=== PATIENT | male | born 1960 | race Caucasian/White ===

== ENCOUNTER 2017-01-05 11:51 | Inpatient (IN) | payer BC ==
[~2017-01-05] VITALS: Ht 177.8 cm; Wt 97.5 kg
[2017-01-05] VITALS (9 sets, daily range): BP systolic 113–141; BP diastolic 63–86
[2017-01-05] MEDS: LIDOCAINE 1% / SOD BICARB 8.4% 20 ML VIAL. IJ ONE ×2 (12:00→12:22)
[2017-01-05] MEDS: fentaNYL PF VIAL 100 MCG/2 ML VIAL IV PRN ×6 (12:22→19:36)
--- NOTE | 2017-01-05 12:32 | RAD ---
Indication injury, pain. AP and lateral views of the left tibia and fibula were obtained. There is a spiral, slightly comminuted traumatic fracture involving the distal tibial diaphysis. There is mild displacement of fracture fragments. There is a dense material at the fracture site, within the bone, compatible with impacted foreign body at the fracture site. A minute foreign body is noted in the soft tissues of the upper calf opposite the proximal fibular diaphysis. IMPRESSION: Comminuted fracture of the distal tibial diaphysis. A foreign body is noted within the bone at the fracture site.
[2017-01-05 12:43] LABS: BASO % 0 % (0-3); EOS % 1 % (0-3); HEMATOCRIT 43.4 % (39.0-53.0); HEMOGLOBIN 14.5 g/dL (13.0-17.5); LYMPH # 1.1 x10^3/uL (1.0-4.8); LYMPH % 10 % (24-48); MEAN CORPUSCULAR HEMOGLOBIN 29 pg (25-35); MEAN CORPUSCULAR HGB CONC 34 g/dL (31-37); MEAN CORPUSCULAR VOLUME 87 fL (79-100); MONO % 5 % (0-9); NEUT % 84 % (31-73); PLATELET COUNT 193 x10^3/uL (140-400); RED BLOOD COUNT 4.97 x10^6/uL (4.30-5.70); RED CELL DISTRIBUTION WIDTH 13.3 % (11.5-14.5); WHITE BLOOD COUNT 11.3 x10^3/uL (4.0-11.0)
[2017-01-05 12:54] LABS: CALCIUM 8.7 mg/dL (8.5-10.1); CREATININE 1.1 mg/dL (0.7-1.3); GFR 69.2
[2017-01-05] MEDS ORDERED: DEXTROSE 50% 25 GM / 50ML DISP.SYRIN. IV PRN ×3 (14:00→19:00)
[2017-01-05] MEDS ORDERED: ACETAMINOPHEN 325 MG TABLET. PO PRN ×2 (14:00→15:00)
[2017-01-05] MEDS ORDERED: ONDANSETRON PF 4 MG/2 ML VIAL. IV PRN ×4 (14:00→19:00)
[2017-01-05] MEDS ORDERED: MORPHINE SULFATE 4 MG/ML DISP.SYRIN. IV PRN ×2 (14:00→19:00)
[2017-01-05] MEDS ORDERED: IV RINGERS,LACTATED 1000ML 1,000 ML IV SCH (14:07)
[2017-01-05] MEDS ORDERED: LIDOCAINE 1% 1 ML SYRINGE. ID PRN (14:15)
[2017-01-05] MEDS ORDERED: HYDROmorphone 2 MG/ML VIAL IV PRN (14:15)
[2017-01-05] MEDS ORDERED: fentaNYL PF VIAL 100 MCG/2 ML VIAL IV PRN ×2 (14:15→19:00)
[2017-01-05] MEDS ORDERED: PROCHLORPERAZINE 10 MG/2 ML VIAL. IV PRN (14:15)
[2017-01-05] MEDS ORDERED: MORPHINE SULFATE 2 MG/ML DISP.SYRIN. IV PRN ×2 (14:15→19:00)
--- NOTE | 2017-01-05 14:29 | EKG ---
[facility] [address] [place] [address] Test Date: 2017-01-05 Test Time: 13:52:11 Pat Name: DANDRE MEHTA Department: Room: 418 1 Gender: M [employer]uum [employer] T[employer]: : 1960 Requested By: MUSTAPHA SHAW Order Number: [id number] Reading MD: Jacque Ayala Measurements Intervals [place] Rate: 81 P: 25 DC: 152 QRS: 20 QRSD: 94 T: 0 QT: 358 QTc: 416 Interpretive Statements SINUS RHYTHM QRS(T) CONTOUR ABNORMALITY CANNOT RULE OUT ANTEROSEPTAL MYOCARDIAL DAMAGE RI6.01 Unconfirmed report No previous ECG available for comparison Electronically Signed On 01-10-2017 14:11:52 CDT by Jacque Ayala
--- NOTE | 2017-01-05 14:36 | RAD ---
Portable chest, 01/05/2017: History: Preop evaluation, leg fracture The heart size and pulmonary vascularity are normal. No pulmonary infiltrates are seen. There is no evidence of pleural fluid. IMPRESSION: No acute cardiopulmonary abnormality is detected.
--- NOTE | 2017-01-05 14:39 | PDOC2 ---
ADELINA YOO REDYE HAND 01/05/17 1439: CONSULT Date of Consult Date of Consult DATE: 01/05/17 TIME: 14:35 Reason for Consult Reason for Consult: trauma Referring Physician Referring Physician: ER Identification/Chief Complaint Chief Complaint trauma injury Source Source: Chart review, Patient History of Present Illness Reason for Visit: Working with a tool that has a significant high speed, he was hit in abdomen, lost breathe momentarily, then noticed fractured left leg. Past Medical History Cardiovascular: HTN Endocrine: Diabetes Past Surgical History Past Surgical History: No pertinent history Family History Family History: Other (noncontributory to current illness ) Social History No ALCOHOL: occassional Drugs: None Lives: with Family Current Medications Current Medications Current Medications Fentanyl Citrate (Fentanyl 2ml Vial) 50 mcg PRN Q15MIN PRN IV PAIN GREATER THAN 3/10 Last administered on 01/05/17 14:15; Start 01/05/17 at 12:00; Stop at 11:59 Lidocaine/Sodium Bicarbonate (Buffered Lidocaine 1%) 20 ml 1X ONCE IJ ; Start 01/05/17 at 12:00; Stop 01/05/17 at 12:07; Status DC Cefazolin Sodium/ Dextrose 50 ml @ 100 mls/hr 1X ONCE IV Last administered on 01/05/17 13:14; Start 01/05/17 at 13:00; Stop 01/05/17 at 13:29; Status DC Ondansetron HCl (Zofran) 4 mg PRN Q8HRS PRN IV NAUSEA/VOMITING; Start 01/05/17 at 14:00; Stop 01/06/17 at 13:59 Morphine Sulfate 4 mg PRN Q2HR PRN IV PAIN; Start 01/05/17 at 14:00; Stop 01/06 at 13:59 Acetaminophen (Tylenol) 650 mg PRN Q4HRS PRN PO FEVER; Start 01/05/17 at 14:00 ; Stop 01/06/17 at 13:59 Insulin Aspart (NovoLOG) 0-5 UNITS TIDWMEALS SQ ; Start 01/05/17 at 17:00 Dextrose (Dextrose 50%-Water Syringe) 12.5 gm PRN Q15MIN PRN IV SEE COMMENTS; Start 01/05/17 at 14:00 Ondansetron HCl (Zofran) 4 mg PRN Q6HRS PRN IV NAUSEA/VOMITING; Start 01/05/17 at 14:15; Stop 01/06/17 at 14:14 Fentanyl Citrate (Fentanyl 2ml Vial) 25 mcg PRN Q5MIN PRN IV MILD PAIN; Start 01/05/17 at 14:15; Stop 01/06/17 at 14:14 Fentanyl Citrate (Fentanyl 2ml Vial) 50 mcg PRN Q5MIN PRN IV MODERATE PAIN; Start 01/05/17 at 14:15; Stop 01/06/17 at 14:14 Morphine Sulfate 1 mg PRN Q10MIN PRN IV SEVERE PAIN; Start 01/05/17 at 14:15; Stop 01/06/17 at 14:14 Ringer's Solution 1,000 ml @ 0 mls/hr Q0M IV ; Start 01/05/17 at 14:07; Stop at 02:06 Lidocaine HCl 2 ml PRN 1X PRN ID PRIOR TO IV START; Start 01/05/17 at 14:15; Stop 01/06/17 at 14:14 Hydromorphone HCl (Dilaudid) 0.5 mg PRN Q10MIN PRN IV SEV PAIN, Second choice; Start 01/05/17 at 14:15; Stop 01/06/17 at 14:14 Prochlorperazine Edisylate (Compazine) 5 mg PACU PRN PRN IV NAUSEA, MRX1; Start 01/05/17 at 14:15; Stop 01/06/17 at 14:14 Allergies Allergies: Coded Allergies: No Known Drug Allergies (Unverified , 10/24/15) ROS General: No: Chills, Other (fevers) PSYCHOLOGICAL ROS: No: Anxiety, Depression Eyes: No Blurry vision, No Double vision HEENT: No: Heacaches, Sore Throat Hematological and Lymphatic: No: Bleeding Problems, Blood Clots Respiratory: No: Cough, Shortness of breath Cardiovascular: No Chest Pain, No Palpitations Gastrointestinal: No Nausea, No Vomiting Genitourinary: No Dysuria, No Hematuria Musculoskeletal: Yes Joint Pain Neurological: No Headaches, No Numbness/Tingling Skin: No Pruritus, No Rash Physical Exam General: Alert, Oriented X3, Cooperative, No acute distress HEENT: PERRLA, Mucous membr. moist/pink Lungs: Clear to auscultation, Normal air movement Heart: Regular rate, Normal S1, Normal S2, No murmurs Abdomen: Soft, Other (bruising to RLQ, nontender, ND) Extremities: Other (left leg in splint) Skin: No rashes Neuro: Normal speech, Sensation intact Psych/Mental Status: Mental status NL, Mood NL MUSCULOSKELETAL: No deformity, No swelling Vitals VITALS Vital Signs Date Time Temp Pulse Resp B/P (MAP) Pulse Ox O2 Delivery O2 Flow Rate FiO2 01/05/17 14:15 17 97 Room Air 01/05/17 14:00 72 123/70 (87) 01/05/17 12:10 98.4 98.4 Labs Labs Laboratory Tests Test 01/05/17 12:15 White Blood Count 11.3 x10^3/uL (4.0-11.0) Red Blood Count 4.97 x10^6/uL (4.30-5.70) Hemoglobin 14.5 g/dL (13.0-17.5) Hematocrit 43.4 % (39.0-53.0) Mean Corpuscular Volume 87 fL (79-100) Mean Corpuscular Hemoglobin 29 pg (25-35) Mean Corpuscular Hemoglobin Concent 34 g/dL (31-37) Red Cell Distribution Width 13.3 % (11.5-14.5) Platelet Count 193 x10^3/uL (140-400) Neutrophils (%) (Auto) 84 % (31-73) Lymphocytes (%) (Auto) 10 % (24-48) Monocytes (%) (Auto) 5 % (0-9) Eosinophils (%) (Auto) 1 % (0-3) Basophils (%) (Auto) 0 % (0-3) Neutrophils # (Auto) 9.5 x10^3uL (1.8-7.7) Lymphocytes # (Auto) 1.1 x10^3/uL (1.0-4.8) Monocytes # (Auto) 0.5 x10^3/uL (0.0-1.1) Eosinophils # (Auto) 0.1 x10^3/uL (0.0-0.7) Basophils # (Auto) 0.0 x10^3/uL (0.0-0.2) Sodium Level 140 mmol/L (136-145) Potassium Level 4.0 mmol/L (3.5-5.1) Chloride Level 103 mmol/L (98-107) Carbon Dioxide Level 26 mmol/L (21-32) Anion Gap 11 (6-14) Blood Urea Nitrogen 18 mg/dL (8-26) Creatinine 1.1 mg/dL (0.7-1.3) Estimated GFR (Cockcroft-Gault) 69.2 Glucose Level 210 mg/dL (70-99) Calcium Level 8.7 mg/dL (8.5-10.1) Laboratory Tests Test 01/05/17 12:15 White Blood Count 11.3 x10^3/uL (4.0-11.0) Red Blood Count 4.97 x10^6/uL (4.30-5.70) Hemoglobin 14.5 g/dL (13.0-17.5) Hematocrit 43.4 % (39.0-53.0) Mean Corpuscular Volume 87 fL (79-100) Mean Corpuscular Hemoglobin 29 pg (25-35) Mean Corpuscular Hemoglobin Concent 34 g/dL (31-37) Red Cell Distribution Width 13.3 % (11.5-14.5) Platelet Count 193 x10^3/uL (140-400) Neutrophils (%) (Auto) 84 % (31-73) Lymphocytes (%) (Auto) 10 % (24-48) Monocytes (%) (Auto) 5 % (0-9) Eosinophils (%) (Auto) 1 % (0-3) Basophils (%) (Auto) 0 % (0-3) Neutrophils # (Auto) 9.5 x10^3uL (1.8-7.7) Lymphocytes # (Auto) 1.1 x10^3/uL (1.0-4.8) Monocytes # (Auto) 0.5 x10^3/uL (0.0-1.1) Eosinophils # (Auto) 0.1 x10^3/uL (0.0-0.7) Basophils # (Auto) 0.0 x10^3/uL (0.0-0.2) Sodium Level 140 mmol/L (136-145) Potassium Level 4.0 mmol/L (3.5-5.1) Chloride Level 103 mmol/L (98-107) Carbon Dioxide Level 26 mmol/L (21-32) Anion Gap 11 (6-14) Blood Urea Nitrogen 18 mg/dL (8-26) Creatinine 1.1 mg/dL (0.7-1.3) Estimated GFR (Cockcroft-Gault) 69.2 Glucose Level 210 mg/dL (70-99) Calcium Level 8.7 mg/dL (8.5-10.1) Assessment/Plan Assessment/Plan tib fib fracture high impact trauma to abdomen and left leg small amount of bruising to abdomen, nontender--will check ct abd/pelvis to assure to further injury ortho planning OR today for fracture d/w TASH Sosa MD 01/05/17 1741: CONSULT Allergies Allergies: Coded Allergies: No Known Drug Allergies (Unverified , 10/24/15) Assessment/Plan Assessment/Plan Pt out of room will f/u CT surgical care per ortho ADELINA YOO APRN January 05, 2017 14:39 TASH HANSEN MD January 05, 2017 17:41
--- NOTE | 2017-01-05 14:49 | PDOC1 ---
History and Physical Date of Admission Date of Admission 01/05/17 Identification/Chief Complaint Chief Complaint left leg fx Problems: Source Source: Chart review, Patient History of Present Illness History of Present Illness 56yo M, dm2, htn, WAS sent for left leg fx today. He was working with some metal tool, which has high speed and fell apart and one piece hit his Rt abd with some bruise, and another piece hit his left ankle. He has very mild abd pain. He noticed he was moving his left leg but not ankle and then notice an open fx at left ankle. XR in ER SHOWED left side communited open fx with a foreign body. Past Medical History Cardiovascular: HTN Endocrine: Diabetes Past Surgical History Past Surgical History: No pertinent history Family History Family History: Hypertension, Other (noncontributory to current illness ) Social History Smoke: No ALCOHOL: occassional Drugs: None Current Medications Current Medications Current Medications Medications (Trade) Dose Ordered Sig/Dario Start Time Stop Time Status Last Admin Dose Admin Acetaminophen (Tylenol) 650 mg PRN Q4HRS PRN 01/05/17 14:00 01/06/17 13:59 Cefazolin Sodium/ Dextrose 50 ml @ 100 mls/hr 1X ONCE 01/05/17 13:00 01/05/17 13:29 DC 01/05/17 13:14 100 MLS/HR Dextrose (Dextrose 50%-Water Syringe) 12.5 gm PRN Q15MIN PRN 01/05/17 14:00 Fentanyl Citrate (Fentanyl 2ml Vial) 50 mcg PRN Q5MIN PRN 01/05/17 14:15 01/06/17 14:14 Hydromorphone HCl (Dilaudid) 0.5 mg PRN Q10MIN PRN 01/05/17 14:15 01/06/17 14:14 Insulin Aspart (NovoLOG) 0-5 UNITS TIDWMEALS 01/05/17 17:00 Lidocaine HCl 2 ml PRN 1X PRN 01/05/17 14:15 01/06/17 14:14 Lidocaine/Sodium Bicarbonate (Buffered Lidocaine 1%) 20 ml 1X ONCE 01/05/17 12:00 01/05/17 12:07 DC Morphine Sulfate 1 mg PRN Q10MIN PRN 01/05/17 14:15 01/06/17 14:14 Ondansetron HCl (Zofran) 4 mg PRN Q6HRS PRN 01/05/17 14:15 01/06/17 14:14 Prochlorperazine Edisylate (Compazine) 5 mg PACU PRN PRN 01/05/17 14:15 01/06/17 14:14 Ringer's Solution 1,000 ml @ 0 mls/hr Q0M 01/05/17 14:07 01/06/17 02:06 Allergies Allergies Allergies Coded Allergies Type Severity Reaction Last Updated Verified No Known Drug Allergies 10/24/15 No ROS Review of System CONSTITUTIONAL: No fever or chills EYES: No recent changes SKIN: No rash or itching CARDIOVASCULAR: No chest pain, syncope, palpitations, or edema RESPIRATORY: No SOB or cough GASTROINTESTINAL: No nausea, vomiting or abdominal pain NEUROLOGICAL: No headaches or weakness ENDOCRINE: No cold or heat intolerance GENITOURINARY: No urgency or frequency of urination MUSCULOSKELETAL: No back pain or joint pain LYMPHATICS: No enlarged lymph nodes PSYCHIATRIC: No anxiety or depression Physical Exam Physical Exam GEN.: No apparent distress. Alert and oriented. HEENT: Head is normocephalic, atraumatic NECK: Supple. LUNGS: Clear to auscultation. HEART: RRR, S1, S2 present. Peripheral pulses intact ABDOMEN: Soft, nontender. Positive bowel sounds. EXTREMITIES: Without any cyanosis. left leg has splint on with dressing. toes has sensation. NEUROLOGIC: Normal speech, normal tone PSYCHIATRIC: Normal affect, normal mood. SKIN: No ulcerations Vitals Vitals Vital Signs Date Time Temp Pulse Resp B/P (MAP) Pulse Ox O2 Delivery O2 Flow Rate FiO2 01/05/17 14:15 17 97 Room Air 01/05/17 14:00 72 123/70 (87) 01/05/17 12:10 98.4 98.4 Labs Labs Laboratory Tests Test 01/05/17 12:15 White Blood Count 11.3 x10^3/uL (4.0-11.0) Red Blood Count 4.97 x10^6/uL (4.30-5.70) Hemoglobin 14.5 g/dL (13.0-17.5) Hematocrit 43.4 % (39.0-53.0) Mean Corpuscular Volume 87 fL (79-100) Mean Corpuscular Hemoglobin 29 pg (25-35) Mean Corpuscular Hemoglobin Concent 34 g/dL (31-37) Red Cell Distribution Width 13.3 % (11.5-14.5) Platelet Count 193 x10^3/uL (140-400) Neutrophils (%) (Auto) 84 % (31-73) Lymphocytes (%) (Auto) 10 % (24-48) Monocytes (%) (Auto) 5 % (0-9) Eosinophils (%) (Auto) 1 % (0-3) Basophils (%) (Auto) 0 % (0-3) Neutrophils # (Auto) 9.5 x10^3uL (1.8-7.7) Lymphocytes # (Auto) 1.1 x10^3/uL (1.0-4.8) Monocytes # (Auto) 0.5 x10^3/uL (0.0-1.1) Eosinophils # (Auto) 0.1 x10^3/uL (0.0-0.7) Basophils # (Auto) 0.0 x10^3/uL (0.0-0.2) Sodium Level 140 mmol/L (136-145) Potassium Level 4.0 mmol/L (3.5-5.1) Chloride Level 103 mmol/L (98-107) Carbon Dioxide Level 26 mmol/L (21-32) Anion Gap 11 (6-14) Blood Urea Nitrogen 18 mg/dL (8-26) Creatinine 1.1 mg/dL (0.7-1.3) Estimated GFR (Cockcroft-Gault) 69.2 Glucose Level 210 mg/dL (70-99) Calcium Level 8.7 mg/dL (8.5-10.1) Laboratory Tests Test 01/05/17 12:15 White Blood Count 11.3 x10^3/uL (4.0-11.0) Red Blood Count 4.97 x10^6/uL (4.30-5.70) Hemoglobin 14.5 g/dL (13.0-17.5) Hematocrit 43.4 % (39.0-53.0) Mean Corpuscular Volume 87 fL (79-100) Mean Corpuscular Hemoglobin 29 pg (25-35) Mean Corpuscular Hemoglobin Concent 34 g/dL (31-37) Red Cell Distribution Width 13.3 % (11.5-14.5) Platelet Count 193 x10^3/uL (140-400) Neutrophils (%) (Auto) 84 % (31-73) Lymphocytes (%) (Auto) 10 % (24-48) Monocytes (%) (Auto) 5 % (0-9) Eosinophils (%) (Auto) 1 % (0-3) Basophils (%) (Auto) 0 % (0-3) Neutrophils # (Auto) 9.5 x10^3uL (1.8-7.7) Lymphocytes # (Auto) 1.1 x10^3/uL (1.0-4.8) Monocytes # (Auto) 0.5 x10^3/uL (0.0-1.1) Eosinophils # (Auto) 0.1 x10^3/uL (0.0-0.7) Basophils # (Auto) 0.0 x10^3/uL (0.0-0.2) Sodium Level 140 mmol/L (136-145) Potassium Level 4.0 mmol/L (3.5-5.1) Chloride Level 103 mmol/L (98-107) Carbon Dioxide Level 26 mmol/L (21-32) Anion Gap 11 (6-14) Blood Urea Nitrogen 18 mg/dL (8-26) Creatinine 1.1 mg/dL (0.7-1.3) Estimated GFR (Cockcroft-Gault) 69.2 Glucose Level 210 mg/dL (70-99) Calcium Level 8.7 mg/dL (8.5-10.1) VTE Prophylaxis Ordered VTE Prophylaxis Devices: Yes VTE Pharmacological Prophylaxi: No Assessment/Plan Assessment/Plan 1. left leg traumatic open fx with a foreign body 2. dm2 3. HTN 4. obesity 5. Leukocytosis ,reactive 6. right abd abruise, traumatic plan: fu with ortho, sx today abd/pelvis ct NEED home meds pain control labs tmr will do ptot tmr JACKIE Wayne MD January 05, 2017 14:49
[2017-01-05] MEDS ORDERED: oxyCODONE/APAP 5/325 1 TAB TABLET PO PRN (15:00)
--- NOTE | 2017-01-05 15:29 | ED.ADGEN ---
Past Medical History Past Medical History: Diabetes-Type II, Hypertension Past Surgical History: Other Additional Past Surgical Histo: EYE SURGERY Alcohol Use: Occasionally Drug Use: None Adult General Chief Complaint Chief Complaint: TRAUMA ALERT HPI HPI Patient is a 56 year old man, history of type 2 diabetes mellitus, which is controlled with oral euglycemic's, hypertension, who presents to the emergency department via EMS with complaint of pain to the left lower extremity after being struck by a broken grinder lap. Patient sates that he was grinding a type with a hand-held grinder lap, when it "flew apart", patient was struck in the left lower extremity with the wheel of the grinder lap, another part did strike him in the right abdomen, with a glancing blow. Patient states that he had immediate pain in his lower extremity, denies any abdominal pain, denies any other areas of injury, any weakness, numbness or tingling, any nausea or vomiting, any preceding symptoms. No chest pain or shortness of breath. Patient's tetanus is up-to-date. Patient with dressing in place over a laceration to the left anterior tibial region. Review of Systems Review of Systems Constitutional: Denies fever or chills. [] Eyes: Denies change in visual acuity. [] HENT: Denies nasal congestion or sore throat. [] Respiratory: Denies cough or shortness of breath. [] Cardiovascular: Denies chest pain or edema. [] GI: Denies abdominal pain, nausea, vomiting, bloody stools or diarrhea. [] : Denies dysuria. [] Musculoskeletal: Denies back pain, left lower extremity pain. Integument: Denies rash. [] Neurologic: Denies headache, focal weakness or sensory changes. [] Endocrine: Denies polyuria or polydipsia. [] Lymphatic: Denies swollen glands. [] Psychiatric: Denies depression or anxiety. [] Current Medications Current Medications Current Medications Medications (Trade) Dose Ordered Sig/Dario Start Time Stop Time Status Last Admin Dose Admin Fentanyl Citrate (Fentanyl 2ml Vial) 50 mcg PRN Q15MIN PRN 01/05/17 12:00 01/06/17 11:59 01/05/17 14:15 50 MCG Lidocaine/Sodium Bicarbonate (Buffered Lidocaine 1%) 20 ml 1X ONCE 01/05/17 12:00 01/05/17 12:07 DC Allergies Allergies Allergies Coded Allergies Type Severity Reaction Last Updated Verified No Known Drug Allergies 10/24/15 No Physical Exam Physical Exam Constitutional: Well developed, well nourished, no acute distress, non-toxic appearance. [] HENT: Normocephalic, atraumatic, bilateral external ears normal, oropharynx moist, no oral exudates, nose normal. [] Eyes: PERRLA, EOMI, conjunctiva normal, no discharge. [] Neck: Normal range of motion, no tenderness, supple, no stridor. [] Cardiovascular:Heart rate regular rhythm, no murmur him S1, S2, rubs or gallops. [] Lungs & Thorax: Bilateral breath sounds clear to auscultation, no wheezing, rhonchi, rales. No chest or crepitus or tenderness. [] Abdomen: Bowel sounds normal, soft, no tenderness, no masses, no pulsatile masses. [Patient with a abrasion noted in the mid right abdominal region, approximately 3 tenderness by 2 cm, after being struck by a piece of the grinder lap.] Skin: Warm, dry, no erythema, no rash. [] Back: No tenderness, no CVA tenderness. [] Extremities: She with a 5 cm x 1.5 cm laceration to the anterior tibial region on the left lower extremity, with mild oozing bleeding, is visualized, no cyanosis, no clubbing, ROM intact, no edema. [] Neurologic: Alert and oriented X 3, normal motor function, normal sensory function, no focal deficits noted. [] Psychologic: Affect normal, judgement normal, mood normal. [] Patient without abdominal tenderness, abrasion noted in the right mid abdominal region, FAST exam performed at bedside, which was negative. Current Patient Data Vital Signs Vital Signs Date Time Temp Pulse Resp B/P (MAP) Pulse Ox O2 Delivery O2 Flow Rate FiO2 01/05/17 12:45 66 21 140/67 (91) 97 01/05/17 12:33 Room Air 01/05/17 12:10 98.4 98.4 Lab Values Laboratory Tests Test 01/05/17 12:15 White Blood Count 11.3 x10^3/uL (4.0-11.0) H Red Blood Count 4.97 x10^6/uL (4.30-5.70) Hemoglobin 14.5 g/dL (13.0-17.5) Hematocrit 43.4 % (39.0-53.0) Mean Corpuscular Volume 87 fL (79-100) Mean Corpuscular Hemoglobin 29 pg (25-35) Mean Corpuscular Hemoglobin Concent 34 g/dL (31-37) Red Cell Distribution Width 13.3 % (11.5-14.5) Platelet Count 193 x10^3/uL (140-400) Neutrophils (%) (Auto) 84 % (31-73) H Lymphocytes (%) (Auto) 10 % (24-48) L Monocytes (%) (Auto) 5 % (0-9) Eosinophils (%) (Auto) 1 % (0-3) Basophils (%) (Auto) 0 % (0-3) Neutrophils # (Auto) 9.5 x10^3uL (1.8-7.7) H Lymphocytes # (Auto) 1.1 x10^3/uL (1.0-4.8) Monocytes # (Auto) 0.5 x10^3/uL (0.0-1.1) Eosinophils # (Auto) 0.1 x10^3/uL (0.0-0.7) Basophils # (Auto) 0.0 x10^3/uL (0.0-0.2) Sodium Level 140 mmol/L (136-145) Potassium Level 4.0 mmol/L (3.5-5.1) Chloride Level 103 mmol/L (98-107) Carbon Dioxide Level 26 mmol/L (21-32) Anion Gap 11 (6-14) Blood Urea Nitrogen 18 mg/dL (8-26) Creatinine 1.1 mg/dL (0.7-1.3) Estimated GFR (Cockcroft-Gault) 69.2 Glucose Level 210 mg/dL (70-99) H Calcium Level 8.7 mg/dL (8.5-10.1) Laboratory Tests 01/05/17 12:15 Laboratory Tests 01/05/17 12:15 EKG EKG EC: Sinus rhythm, heart rate 81 beats minute, upright axis, QTC of 416, WI 152, QRS 94, no ST elevations or depressions, contour normality is noted in lead 3 with T-wave inversions, abnormal ECG, does not meet STEMI criteria. As interpreted by me. Radiology/Procedures Radiology/Procedures [][address] [address] IMAGING REPORT Signed PATIENT: DANDRE MEHTA ACCOUNT: [id number] : 1960 LOCATION: ER AGE: 56 SEX: M EXAM STATUS: PRE ER ORD. PHYSICIAN: MUSTAPHA SHAW DO REASON: laceration PROCEDURE: TIBIA FIBULA LEFT Indication injury, pain. AP and lateral views of the left tibia and fibula were obtained. There is a spiral, slightly comminuted traumatic fracture involving the distal tibial diaphysis. There is mild displacement of fracture fragments. There is a dense material at the fracture site, within the bone, compatible with impacted foreign body at the fracture site. A minute foreign body is noted in the soft tissues of the upper calf opposite the proximal fibular diaphysis. IMPRESSION: Comminuted fracture of the distal tibial diaphysis. A foreign body is noted within the bone at the fracture site. DICTATED and SIGNED BY: MALINI OCHOA MD DATE: 01/05/17 1225 CC: MUSTAPHA SHAW DO; UNKNOWN PCP NAME ~ Impressions: [address] [phone] IMAGING REPORT Signed PATIENT: DANDRE MEHTA ACCOUNT: [id number] : 1960 LOCATION: [address] [place] [address] AGE: 56 SEX: M EXAM STATUS: ADM IN ORD. PHYSICIAN: MUSTAPHA SHAW DO REASON: Preop PROCEDURE: CHEST AP ONLY Portable chest, 01/05/2017: History: Preop evaluation, leg fracture The heart size and pulmonary vascularity are normal. No pulmonary infiltrates are seen. There is no evidence of pleural fluid. IMPRESSION: No acute cardiopulmonary abnormality is detected. DICTATED and SIGNED BY: IMAN CANTRELL MD DATE: 01/05/17 1433 CC: MUSTAPHA SHAW DO; ISABELLE GREWAL NP; JACKIE COTTO MD ~ Course & Med Decision Making Course & Med Decision Making Pertinent Labs and Imaging studies reviewed. (See chart for details) Patient with open fracture of the distal tibia, comminuted on x-ray, with foreign body noted. Patient with pulses intact, moving feet and toes without issue, pain is controlled in the ED with her menstruation of fentanyl, patient also administered 2 g of Ancef. Findings as above discussed with Dr. Ramirez orthopedics, plan to will take the patient to the OR for washout and fixation. Patient is agreeable plan as stated, resting comfortably, now has pressure dressing and splint in place. Last oral intake was around 9:00 this morning, coffee which which he drank between 6 AM and 9 AM. No solid foods since last night. Patient admitted to Dr. Cotto of internal medicine, patient accepted to her service as a full admission to the surgical medical floor, with consultation as stated. Remains nothing by mouth in the emergency department, resting comfortably, awaiting transfer for surgery. Dragon Disclaimer Dragon Disclaimer This electronic medical record was generated, in whole or in part, using a voice recognition dictation system. Departure Impression: Primary Impression: Fracture, tibia, shaft, open Disposition: ADMITTED INPATIENT Admitting Physician: Roxanne Cotto Condition: IMPROVED Splinting [PATIENT/GUARDIAN/FAMILY: Patient informed of x-ray findings, comminuted fracture of the left distal tibia with retained foreign body. A short-leg splint was applied, with padding, patient reported that the leg felt well supported and more comfortable in the splint, pulses intact, neurovascular examination was unchanged pre-and post-examination, pressure dressing placed over the patient's laceration. Patient tolerated procedure without issue. Splint was applied by gatito Buckley, checked by myself, Dr. Shaw. MUSTAPHA SHAW DO January 05, 2017 15:29
[2017-01-05] MEDS ORDERED: BUPIVACAINE-EPI 0.25%-1:200000 50 ML VIAL. ONE (15:58)
[2017-01-05] MEDS ORDERED: fentaNYL PF VIAL 250 MCG/5 ML VIAL ONE (16:23)
[2017-01-05] MEDS ORDERED: DEXAMETHASONE SOD PHOS 20 MG/5 ML VIAL. ONE (16:24)
[2017-01-05] MEDS ORDERED: LIDOCAINE 2% PF Vial for OR 5 ML VIAL. ONE (16:24)
[2017-01-05] MEDS ORDERED: PROPOFOL 20 ML IV ONE (16:24)
[2017-01-05] MEDS ORDERED: ONDANSETRON PF 4 MG/2 ML VIAL. ONE (16:24)
[2017-01-05] MEDS ORDERED: SEVOFLURANE 61 TO 120 MINUTES. IH ONE (16:24)
[2017-01-05] MEDS: INSULIN ASPART 300 UNITS/3 ML INSULN.PEN SQ SCH (17:00)
[2017-01-05] MEDS ORDERED: INSULIN ASPART 300 UNITS/3 ML INSULN.PEN SQ SCH (17:00)
[2017-01-05] MEDS ORDERED: oxyCODONE IR 5 MG TABLET PO PRN (19:00)
[2017-01-05] MEDS ORDERED: HYDROcodone/APAP 7.5/325MG 1 TAB TABLET PO PRN (19:00)
[2017-01-05] MEDS ORDERED: POLYETHYLENE GLYCOL 3350 17 GM PACKET. PO PRN (19:00)
--- NOTE | 2017-01-05 19:09 | PDOC4 ---
Operative Note Operative Note Date of Procedure: January 05, 2017 Pre-Op Diagnosis: 1. Displaced comminuted fracture of shaft of left tibia, initial encounter for open fracture, type II. (ICD-10: S82.252B) 2. Contact with metalworking machines, initial encounter (ICD-10 W31.1XXA) Post-Op Diagnosis: 1. Displaced comminuted fracture of shaft of left tibia, initial encounter for open fracture, type II. (ICD-10: S82.252B) 2. Contact with metalworking machines, initial encounter (ICD-10 W31.1XXA) Procedure: 1. Open treatment of tibial shaft fracture with plate and screws. CPT 89739 2. Irrigation and debridement for open fracture including skin, subcutaneous tissue, fascia, periosteum, and bone. CPT 81475 3. Removal of multiple deep foreign bodies-metal fragments within the tendon sheath and subcutaneous tissues and within the bone. CPT 40955 Surgeon: Andrea Ramirez MD Seed Analyst: Oksana Webster PA-C Anesthesia: General EBL: 50 mL Specimens Obtained: none Complications: none Drains: none Tourniquet time: 57 minutes Indications for Procedure: The patient is a 56-year-old man who sustained an open fracture of the leg when a metal fabricating shop helper broke apart, and the portions of the snuff grinder and screener struck his body. He had an open fracture with open laceration over the tibia, and a comminuted tibial shaft fracture which was now open. I recommended urgent irrigation and debridement for the open fracture, and stabilization of the fracture with plate and screw fixation. The fracture has comminution, and extends close to the ankle joint but does not enter the ankle joint proper. It is in the distal tibial shaft. We discussed the potential risks of infection, wound healing problems, possible need for a wound VAC, possible neurovascular injuries, need for further surgeries, blood clots, or other potential surgical or anesthetic complications. All of his questions about surgery were answered and he desired to proceed. A written consent was obtained. Procedure in Detail: The patient was identified in the preoperative holding area. The correct left lower extremity was marked by me. The patient was taken to the operating room where general anesthesia was used. The patient was positioned supine on the operating table. Preoperative antibiotics were given intravenously. A timeout procedure was performed. A tourniquet was used on the upper thigh. The prior splint was removed. A 5 cm laceration was noted over the tibia, with a small amount of missing skin. This extended deeply into the area of the tibial bone which is subcutaneous at this point. The limb was prepared in sterile fashion with Betadine scrub and paint, and sterile drapes were applied. The limb was elevated to exsanguinate it and the tourniquet was inflated to 350 mmHg. The [employer] interpulse billboard erector was used and multiple liters of saline were used to irrigate the open fracture. I then explored the open fracture with the instruments. Multiple metallic fragments were removed from the subcutaneous tissues, from the tibialis anterior tendon sheath, and from the surrounding periosteum and fascia. There were multiple metallic fragments deep in the area of the fracture. These were all removed. There was now devitalized bone, and a deep bone was removed. I did excisional debridement of the skin edges, the periosteum, the fascia and the devitalized bone. Next a medial incision was made in preparation for plate application. I used a minimally invasive approach along the tibial malleolus, extending to the level of the open fracture laceration, and across it slightly proximally. Sharp dissection was used and Bovie electrocautery was used for hemostasis. The tibialis anterior tendon was retracted. The [employer] saad-Loc distal tibial locking plate for the medial tibia was used. I used the image intensifier throughout the procedure, and I interpreted all of the images myself intraoperatively. I used an 8 hole plate for good bridging across the fracture site. Initially I contoured the plate slightly to fit the fractured bone but realized I had caused a fracture to sit in varus, and I recontoured the plate back to its original shape, and reapplied it. I used bicortical nonlocking screws just proximal and distal to the fracture site to nicely compress the bone to the fracture. During the screw application, I had Oksana Webster PA-C manually reduce the fracture with longitudinal traction and correction of the varus deformity. I then applied the bicortical screws proximally and distally for reduction of the fracture. The fracture was now near anatomically reduced. The fracture proximally was not further exposed so as to avoid devitalizing any further soft tissues. The plate was applied subcutaneously at the shaft of the tibia. The position of the plate was confirmed on the large image intensifier in AP and lateral planes. Once satisfactory plate and fixation was obtained along with satisfactory fracture reduction, further locking screws were placed distally and proximally. I placed for of the 3.5 mm locking screws in the distal cluster of the plate. I placed 3 bicortical 3.5 mm locking screws percutaneously, in the proximal aspect of the plate in the tibial shaft. Satisfactory reduction and fixation was obtained. The [employer] interpulse billboard erector was again used in copious irrigation was used. There was a bony gap in the anterior cortex of the tibia, but the remaining cortices of the bone appear intact and well opposed. There is also a defect within the intramedullary region of the tibia. I felt this should be grafted, and I used 5 mL of Cass gel at the end of the case to fill this defect. The tourniquet was released. Bovie electrocautery was used carefully for hemostasis. The soft tissues were protected throughout the procedure and were now gently reapproximated. 2-0 Vicryl plus was used in the subcutaneous tissues to reapproximate the surgical incision and the original traumatic laceration. 3- 0 nylon horizontal mattress sutures and vertical mattress sutures were then used in the skin layer to reapproximate the skin. I was able to reapproximate the skin with minimal tension, and with no evidence of need for a wound VAC and no evidence of further development of compartment syndrome or skin necrosis. Oksana my speech assistant closed the skin incisions with 3-0 nylon at the percutaneous stab incisions in the proximal aspect of the plate. She then applied sterile dressings and a soft bulky sterile dressing. There were no apparent complications. Needle and sponge counts were correct. ANDREA RAMIREZ MD January 05, 2017 19:09
--- NOTE | 2017-01-05 19:24 | PDOC2 ---
CONSULT Date of Consult Date of Consult DATE: 01/05/17 Reason for Consult Reason for Consult: right distal tibia fracture Referring Physician Referring Physician: Dr. Sorensen Identification/Chief Complaint Chief Complaint right lower leg pain Source Source: Chart review, Patient History of Present Illness Reason for Visit: Mr. Gonzales is a 56 year old male patient who presented to the ED this afternoon. He was working with a hand-held broach grinder at home when the wheel of the broach grinder suddenly flew off striking him in the right lower leg and abdomen. He sustained an open distal tibia fracture with metal foreign body. There is a small abrasion to the abdomen. Past Medical History Cardiovascular: HTN Endocrine: Diabetes Past Surgical History Past Surgical History eye surgery Family History Family History: Hypertension, Other (noncontributory to current illness ) Social History No ALCOHOL: occassional Drugs: None Lives: with Family Current Problem List Problem List Problems Medical Problems: (1) Fracture, tibia, shaft, open Status: Acute Current Medications Current Medications Current Medications Fentanyl Citrate (Fentanyl 2ml Vial) 50 mcg PRN Q15MIN PRN IV PAIN GREATER THAN 3/10 Last administered on 01/05/17 14:15; Start 01/05/17 at 12:00; Stop at 11:59 Lidocaine/Sodium Bicarbonate (Buffered Lidocaine 1%) 20 ml 1X ONCE IJ ; Start 01/05/17 at 12:00; Stop 01/05/17 at 12:07; Status DC Cefazolin Sodium/ Dextrose 50 ml @ 100 mls/hr 1X ONCE IV Last administered on 01/05/17 13:14; Start 01/05/17 at 13:00; Stop 01/05/17 at 13:29; Status DC Ondansetron HCl (Zofran) 4 mg PRN Q8HRS PRN IV NAUSEA/VOMITING; Start 01/05/17 at 14:00; Stop 01/05/17 at 14:53; Status DC Morphine Sulfate 4 mg PRN Q2HR PRN IV PAIN Last administered on 01/05/17 15:19 ; Start 01/05/17 at 14:00; Stop 01/05/17 at 19:05; Status DC Acetaminophen (Tylenol) 650 mg PRN Q4HRS PRN PO FEVER; Start 01/05/17 at 14:00 ; Stop 01/05/17 at 14:53; Status DC Insulin Aspart (NovoLOG) 0-5 UNITS TIDWMEALS SQ ; Start 01/05/17 at 17:00; Stop 01/05/17 at 17:00; Status DC Dextrose (Dextrose 50%-Water Syringe) 12.5 gm PRN Q15MIN PRN IV SEE COMMENTS; Start 01/05/17 at 14:00; Stop 01/05/17 at 14:53; Status DC Ondansetron HCl (Zofran) 4 mg PRN Q6HRS PRN IV NAUSEA/VOMITING; Start 01/05/17 at 14:15; Stop 01/06/17 at 14:14 Fentanyl Citrate (Fentanyl 2ml Vial) 25 mcg PRN Q5MIN PRN IV MILD PAIN; Start 01/05/17 at 14:15; Stop 01/06/17 at 14:14 Fentanyl Citrate (Fentanyl 2ml Vial) 50 mcg PRN Q5MIN PRN IV MODERATE PAIN; Start 01/05/17 at 14:15; Stop 01/06/17 at 14:14 Morphine Sulfate 1 mg PRN Q10MIN PRN IV SEVERE PAIN; Start 01/05/17 at 14:15; Stop 01/06/17 at 14:14 Ringer's Solution 1,000 ml @ 0 mls/hr Q0M IV Last administered on 01/05/17t 15 :50; Start 01/05/17 at 14:07; Stop 01/06/17 at 02:06 Lidocaine HCl 2 ml PRN 1X PRN ID PRIOR TO IV START; Start 01/05/17 at 14:15; Stop 01/06/17 at 14:14 Hydromorphone HCl (Dilaudid) 0.5 mg PRN Q10MIN PRN IV SEV PAIN, Second choice; Start 01/05/17 at 14:15; Stop 01/06/17 at 14:14 Prochlorperazine Edisylate (Compazine) 5 mg PACU PRN PRN IV NAUSEA, MRX1; Start 01/05/17 at 14:15; Stop 01/06/17 at 14:14 Insulin Aspart (NovoLOG) 0-9 UNITS TIDWMEALS SQ ; Start 01/05/17 at 17:00 Dextrose (Dextrose 50%-Water Syringe) 12.5 gm PRN Q15MIN PRN IV SEE COMMENTS; Start 01/05/17 at 15:00; Stop 01/05/17 at 19:05; Status DC Acetaminophen (Tylenol) 650 mg PRN Q6HRS PRN PO FEVER; Start 01/05/17 at 15:00 Ondansetron HCl (Zofran) 4 mg PRN Q6HRS PRN IV NAUSEA/VOMITING; Start 01/05/17 at 15:00 Oxycodone/ Acetaminophen (Percocet 5/325) 1 tab PRN Q4HRS PRN PO PAIN; Start at 15:00 Bupivacaine HCl/ Epinephrine Bitart (Marcaine-Epi 0.25%-1:924700) 50 ml STK-MED ONCE .ROUTE Last administered on 01/05/17t 17:17; Start 01/05/17 at 15:58; Stop 01/05/17 at 15:59; Status DC Fentanyl Citrate (Fentanyl 5ml Vial) 250 mcg STK-MED ONCE .ROUTE ; Start at 16:23; Stop 01/05/17 at 16:24; Status DC Sevoflurane (Ultane) 60 ml STK-MED ONCE IH ; Start 01/05/17 at 16:24; Stop 01/05 at 16:25; Status DC Lidocaine HCl (Lidocaine Pf 2% Vial) 5 ml STK-MED ONCE .ROUTE ; Start 01/05/17 at 16:24; Stop 01/05/17 at 16:25; Status DC Dexamethasone Sodium Phosphate (Decadron) 20 mg STK-MED ONCE .ROUTE ; Start at 16:24; Stop 01/05/17 at 16:25; Status DC Propofol 20 ml @ As Directed STK-MED ONCE IV ; Start 01/05/17 at 16:24; Stop at 16:25; Status DC Ondansetron HCl (Zofran) 4 mg STK-MED ONCE .ROUTE ; Start 01/05/17 at 16:24; Stop 01/05/17 at 16:25; Status DC Cefazolin Sodium 50 ml @ As Directed STK-MED ONCE IV ; Start 01/05/17 at 16:59; Stop 01/05/17 at 17:00; Status DC Cefazolin Sodium 50 ml @ As Directed STK-MED ONCE IV ; Start 01/05/17 at 17:11; Stop 01/05/17 at 17:12; Status DC Oxycodone HCl (Roxicodone) 5 mg PRN Q3HRS PRN PO PAIN; Start 01/05/17 at 19:00 Morphine Sulfate 2 mg PRN Q1HR PRN IV PAIN; Start 01/05/17 at 19:00 Fentanyl Citrate (Fentanyl 2ml Vial) 25 mcg PRN Q1HR PRN IV PAIN; Start at 19:00 Senna/Docusate Sodium (Senna Plus) 1 tab DAILY PO ; Start 01/06/17 at 09:00 Polyethylene Glycol (miraLAX PACKET) 17 gm PRN DAILY PRN PO CONSTIPATION; Start 01/05/17 at 19:00 Vitamin D (Vitamin D3) 1,000 unit DAILY PO ; Start 01/06/17 at 09:00 Ondansetron HCl (Zofran) 4 mg PRN Q4HRS PRN IV NAUSEA/VOMITING; Start 01/05/17 at 19:00 Aspirin (Josette Aspirin) 325 mg DAILYWBKFT PO ; Start 01/06/17 at 08:00 Magnesium Hydroxide (Milk Of Magnesia) 2,400 mg 1X PRN PRN PO CONSTIPATION; Start 01/06/17 at 06:00; Stop 01/07/17 at 05:59 Bisacodyl (Dulcolax Supp) 10 mg 1X PRN PRN IA CONSTIPATION; Start 01/06/17 at 16:00; Stop 01/07/17 at 15:59 Acetaminophen/ Hydrocodone Bitart (Lortab 7.5/325) 1 tab PRN Q4HRS PRN PO PAIN ; Start 01/05/17 at 19:00 Morphine Sulfate 4 mg PRN Q2HR PRN IV PAIN; Start 01/05/17 at 19:00 Acetaminophen/ Hydrocodone Bitart (Lortab 7.5/325) 2 tab PRN Q4HRS PRN PO PAIN ; Start 01/05/17 at 19:00 Dextrose (Dextrose 50%-Water Syringe) 12.5 gm PRN Q15MIN PRN IV SEE COMMENTS; Start 01/05/17 at 19:00 Cefazolin Sodium/ Dextrose 50 ml @ 100 mls/hr Q6H IV ; Start 01/05/17 at 23:00 ; Stop 01/07/17 at 05:29 Calcium Carbonate/ Glycine (Oscal) 500 mg TIDAFTMEAL PO ; Start 01/06/17 at 09: 00 Allergies Allergies: Coded Allergies: No Known Drug Allergies (Unverified , 10/24/15) Physical Exam General: Alert, Oriented X3, Cooperative, No acute distress HEENT: Atraumatic, EOMI Lungs: Normal air movement Heart: Regular rate Abdomen: Soft, Other (L-shaped abrasion to right lower abdomen approximately 6 cm in diameter) Extremities: No clubbing, No cyanosis, No edema, Normal pulses, Other (Open fracture of right dital tibia. Calf soft and nontender. Peripheral pulses and light touch sensation intact. Neurovascularly intact. ) Skin: No rashes, Other (Laceration over right anterior distal tibia approximately 6 cm x 2 cm) Neuro: Normal speech, Sensation intact Psych/Mental Status: Mental status NL, Mood NL Vitals VITALS Vital Signs Date Time Temp Pulse Resp B/P (MAP) Pulse Ox O2 Delivery O2 Flow Rate FiO2 01/05/17 19:02 98.7 80 18 128/75 99 Simple Mask 10 98.7 Labs Labs Laboratory Tests Test 01/05/17 12:15 01/05/17 18:53 White Blood Count 11.3 x10^3/uL (4.0-11.0) Red Blood Count 4.97 x10^6/uL (4.30-5.70) Hemoglobin 14.5 g/dL (13.0-17.5) Hematocrit 43.4 % (39.0-53.0) Mean Corpuscular Volume 87 fL (79-100) Mean Corpuscular Hemoglobin 29 pg (25-35) Mean Corpuscular Hemoglobin Concent 34 g/dL (31-37) Red Cell Distribution Width 13.3 % (11.5-14.5) Platelet Count 193 x10^3/uL (140-400) Neutrophils (%) (Auto) 84 % (31-73) Lymphocytes (%) (Auto) 10 % (24-48) Monocytes (%) (Auto) 5 % (0-9) Eosinophils (%) (Auto) 1 % (0-3) Basophils (%) (Auto) 0 % (0-3) Neutrophils # (Auto) 9.5 x10^3uL (1.8-7.7) Lymphocytes # (Auto) 1.1 x10^3/uL (1.0-4.8) Monocytes # (Auto) 0.5 x10^3/uL (0.0-1.1) Eosinophils # (Auto) 0.1 x10^3/uL (0.0-0.7) Basophils # (Auto) 0.0 x10^3/uL (0.0-0.2) Sodium Level 140 mmol/L (136-145) Potassium Level 4.0 mmol/L (3.5-5.1) Chloride Level 103 mmol/L (98-107) Carbon Dioxide Level 26 mmol/L (21-32) Anion Gap 11 (6-14) Blood Urea Nitrogen 18 mg/dL (8-26) Creatinine 1.1 mg/dL (0.7-1.3) Estimated GFR (Cockcroft-Gault) 69.2 Glucose Level 210 mg/dL (70-99) Calcium Level 8.7 mg/dL (8.5-10.1) Glucose (Fingerstick) 164 mg/dL (70-99) Laboratory Tests Test 01/05/17 12:15 01/05/17 18:53 White Blood Count 11.3 x10^3/uL (4.0-11.0) Red Blood Count 4.97 x10^6/uL (4.30-5.70) Hemoglobin 14.5 g/dL (13.0-17.5) Hematocrit 43.4 % (39.0-53.0) Mean Corpuscular Volume 87 fL (79-100) Mean Corpuscular Hemoglobin 29 pg (25-35) Mean Corpuscular Hemoglobin Concent 34 g/dL (31-37) Red Cell Distribution Width 13.3 % (11.5-14.5) Platelet Count 193 x10^3/uL (140-400) Neutrophils (%) (Auto) 84 % (31-73) Lymphocytes (%) (Auto) 10 % (24-48) Monocytes (%) (Auto) 5 % (0-9) Eosinophils (%) (Auto) 1 % (0-3) Basophils (%) (Auto) 0 % (0-3) Neutrophils # (Auto) 9.5 x10^3uL (1.8-7.7) Lymphocytes # (Auto) 1.1 x10^3/uL (1.0-4.8) Monocytes # (Auto) 0.5 x10^3/uL (0.0-1.1) Eosinophils # (Auto) 0.1 x10^3/uL (0.0-0.7) Basophils # (Auto) 0.0 x10^3/uL (0.0-0.2) Sodium Level 140 mmol/L (136-145) Potassium Level 4.0 mmol/L (3.5-5.1) Chloride Level 103 mmol/L (98-107) Carbon Dioxide Level 26 mmol/L (21-32) Anion Gap 11 (6-14) Blood Urea Nitrogen 18 mg/dL (8-26) Creatinine 1.1 mg/dL (0.7-1.3) Estimated GFR (Cockcroft-Gault) 69.2 Glucose Level 210 mg/dL (70-99) Calcium Level 8.7 mg/dL (8.5-10.1) Glucose (Fingerstick) 164 mg/dL (70-99) Images Images Right tib/fib films show displaced, comminuted fracture of the distal tibia with no apparent intra-articular extension. Metallic foreign bodies seen within the fracture. Assessment/Plan Assessment/Plan Open fracture of distal tibia. Dr. Ramirez recommends urgent irrigation and debridement, removal or foreign body, and fixation of the open fracture. Risks and benefits were discussed with the patient and his family. All of his questions were answered and he agrees to proceed. VITOR MATHEWS January 05, 2017 19:24
[2017-01-05] MEDS: HYDROcodone/APAP 7.5/325MG 1 TAB TABLET PO PRN (20:42)
[2017-01-06 03:00] VITALS: BP 110/61
--- NOTE | 2017-01-06 03:01 | ACF ---
Admission Forms Criteria MUSCULOSKELETAL DISEASE GRG Clinical Indications for Admission to Inpatient Care (Place 'X' for any and all applicable criteria): Hospital admission is needed for appropriate care of the patient because of 1 or more of the following: [X ]I. Fracture, dislocation, or other musculoskeletal injury requiring inpatient care(medical) as indicated by 1 or more of the following(4)(5)(6)(7) [ ]a) Vertebral fracture requiring observation for instability or neurologic compromise (8) [ ]b) Compartment syndrome (proven or cannot be ruled out during observation level of care) (9) [ ]c) Limb-threatening injury [ ]d) Major injury requiring inpatient stabilization such as traction initiation or external fixation before internal fixation or closure of complex or open fracture [X ]e) Major injury requiring inpatient treatment after emergency or observation level care (as appropriate) [ ]f) Severe pain requiring acute inpatient management [ ]g) Injury with suspicion of abuse or neglect (eg., child, dependent elderly) [ ]II. Newly diagnosed or suspected bone, joint, or orthopedic device infection (e.g., osteomyelitis, septic arthritis) needing 1 or more of the following(1)(2)(3) [ ]a) IV antibiotics that cannot be initiated in other than inpatient setting (e.g., patient too unstable or home infusion not available) [ ]b) Device removal or replacement [ ]c) Bone or soft tissue debridement [ ]d) Joint drainage (drain placement or repetitive aspirations) [ ]III. Severe rheumatologic disease (e.g., systemic lupus erythematosus, rheumatoid arthritis) with complications or comorbidities (Also use Optimal Recovery Care Criteria or General Recovery Criteria as appropriate on the basis of predominant condition), including 1 or more of the following( 10)(11)(12)(13) [ ]a) Severe infection (e.g., HYGIENE ASSISTANT infection, sepsis) (14) [ ]b) Respiratory complications, including 1 or more of the following : [ ]i) Pleural effusion with respiratory compromise [ ]ii) Pulmonary hypertension with congestive failure [ ]iii) Respiratory failure [ ]iv) Pulmonary hemorrhage (15) [ ]c) Hematologic disease, including 1 or more of the following: [ ]i) Coagulopathy with bleeding [ ]ii) Thrombosis with hypercoagulable state [ ]iii) Thrombotic thrombocytopenic purpura [ ]d) Cerebritis with seizures, psychosis, or other severe abnormalities [ ]e) Vertebral destruction with monitoring needed for cervical myelopathy& possible respiratory compromise [ ]f) Exacerbation that requires inpatient treatment (e.g., intravenous immunosuppression) (16) [ ]g) Acute renal failure [ ]h) Cerebritis with seizures, psychosis, Altered mental status, or other neurologic abnormalities [ ]i) Pericardial effusion with tamponade [ ]j) Vertebral destruction, with monitoring needed for cervical myelopathy and possible respiratory compromise [ ]IV. Severe vasculitis with complications or comorbidities (Also use Optimal Recovery Care Criteria General Recovery Criteria as appropriate on the basis of predominant condition), including 1 or more of the following(11)(12)(17)(18)(19)(20) [ ]a) Exacerbation that requires inpatient treatment (e.g., intravenous immunosuppression) (19)(21) [ ]b) Pulmonary hemorrhage (15) [ ]c) HYGIENE ASSISTANT vasculitis with seizures, psychosis, Altered mental status that is severe or persistent, or other severe abnormalities (22) [ ]d) Cerebral infarction [ ]e) Gastrointestinal ischemia [ ]f) Gangrene or threatened amputation [ ]g) Renal failure (16) [ ]h) Other significant complications of vasculitis ( eg., tissue or organ ischemia, organ dysfunction ) [ ]V. Severe myopathy as indicated by 1 or more of the following (28)(29) [ ]a) New onset of airway compromise or inability to swallow [ ]b) Respiratory deterioration with observation needed for impending respiratory failure [ ]c) Exacerbation that requires inpatient treatment (e.g., intravenous immunosuppression) [ ]. Severe crystal gout (arthropathy) indicated by 1 or more of the following (23)(24) [ ]a) Severe pain requiring acute inpatient management [ ]b) Exacerbation that requires inpatient treatment (e.g., intravenous treatment) [ ]VII.Rhabdomyolysis and 1 or more of the following (25)(26)(27) [ ]a) Acute renal failure [ ]b) Need for intravenous hydration after emergency or observation level care (as appropriate) [ ]c) Inability to maintain oral hydration [ ]d) Change in mental status [ ]e) Electrolyte abnormality that remains after emergency or observation level care (as appropriate) [ ]VIII Post amputation complication, as indicated by ANY ONE of the following [ ]a) Infection [ ]b) Dehiscence [ ]c) Myodesis failure [ ]IX. Severe pain requiring acute inpatient management due to musculoskeletal condition [ ]X. Musculoskeletal Disease and ALL of the following: [ ]a) Symptom or finding for which emergency and observation care have failed or are not considered appropriate (Use General Criteria: Observation Care as appropriate) [ ]b) Presence of ANY ONE of the following [ ]i) A General Admission Criteria [ ]ii) A Pediatric General Admission Criteria The original [facility] content created by [facility] has been revised. The portions of the content which have been revised are identified through the use of italic text or in bold, and [facility] has neither reviewed nor approved the modified material. All other unmodified content is copyright [facility]. Please see references footnoted in the original [facility] edition 2016 Admission Criteria Met?: Yes FRANK HAYES January 06, 2017 03:01
[2017-01-06] MEDS ORDERED: MAGNESIUM HYDROXIDE 2,400 MG/30 ML ORAL.SUSP. PO PRN (06:00)
[2017-01-06 06:07] LABS: BASO % 0 % (0-3); EOS % 0 % (0-3); HEMATOCRIT 38.6 % (39.0-53.0); LYMPH % 9 % (24-48); MEAN CORPUSCULAR HEMOGLOBIN 30 pg (25-35); MEAN CORPUSCULAR HGB CONC 34 g/dL (31-37); MEAN CORPUSCULAR VOLUME 88 fL (79-100); MONO % 6 % (0-9); NEUT % 85 % (31-73); PLATELET COUNT 189 x10^3/uL (140-400); RED BLOOD COUNT 4.39 x10^6/uL (4.30-5.70); RED CELL DISTRIBUTION WIDTH 13.4 % (11.5-14.5); WHITE BLOOD COUNT 11.3 x10^3/uL (4.0-11.0)
[2017-01-06 06:25] LABS: CALCIUM 8.4 mg/dL (8.5-10.1); CREATININE 1.1 mg/dL (0.7-1.3); GFR 69.2; POTASSIUM 3.8 mmol/L (3.5-5.1)
[2017-01-06 07:00] VITALS: BP 120/70
[2017-01-06] MEDS ORDERED: IOHEXOL 300 MG/ML 75 ML VIAL IV ONE (07:00)
[2017-01-06] MEDS ORDERED: CONTRAST GIVEN MC PRN (07:00)
[2017-01-06] MEDS: INSULIN ASPART 300 UNITS/3 ML INSULN.PEN SQ SCH ×3 (08:41→17:13)
[2017-01-06] MEDS: CALCIUM CARBONATE 500 MG TABLET PO SCH ×3 (09:38→17:08)
[2017-01-06] MEDS: CHOLECALCIFEROL (VITAMIN D3) 1,000 UNIT TABLET PO SCH (09:38)
[2017-01-06] MEDS: SENNOSIDES/DOCUSATE 8.6/50MG TABLET. PO SCH (09:38)
[2017-01-06] MEDS: ASPIRIN 325 MG TABLET PO SCH (09:38)
[2017-01-06] MEDS: HYDROcodone/APAP 7.5/325MG 1 TAB TABLET PO PRN ×3 (09:39→20:31)
--- NOTE | 2017-01-06 09:57 | PDOC ---
PROGRESS NOTES Chief Complaint Chief Complaint L tibial fx History of Present Illness History of Present Illness Pt was lying in bed in NAD Left tibial bandages over wound/surgical site Pt reports feeling well and pain is controlled Vitals Vitals Vital Signs Date Time Temp Pulse Resp B/P (MAP) Pulse Ox O2 Delivery O2 Flow Rate FiO2 01/06/17 09:39 18 Room Air 01/06/17 07:00 98.4 84 120/70 (87) 96 98.4 01/05/17 19:02 10 Physical Exam General: Alert, Oriented X3, Cooperative, No acute distress Heart: Regular rate, No murmurs Lungs: Clear, Other (no wheezing) Abdomen: Normal bowel sounds, Soft, Other (L-shaped abrasion to right lower abdomen approximately 6 cm in diameter) Extremities: No clubbing, No cyanosis, No edema, Normal pulses, Other (S/P left tibial fx repair, wound bandaged, Calf soft and nontender. Peripheral pulses and light touch sensation intact. Neurovascularly intact. ) Skin: No rashes, Other (Laceration over right anterior distal tibia approximately 6 cm x 2 cm) Labs LABS Laboratory Tests Test 01/05/17 12:15 01/05/17 18:53 01/05/17 20:45 01/06/17 05:29 White Blood Count 11.3 x10^3/uL (4.0-11.0) 11.3 x10^3/uL (4.0-11.0) Red Blood Count 4.97 x10^6/uL (4.30-5.70) 4.39 x10^6/uL (4.30-5.70) Hemoglobin 14.5 g/dL (13.0-17.5) 13.0 g/dL (13.0-17.5) Hematocrit 43.4 % (39.0-53.0) 38.6 % (39.0-53.0) Mean Corpuscular Volume 87 fL (79-100) 88 fL (79-100) Mean Corpuscular Hemoglobin 29 pg (25-35) 30 pg (25-35) Mean Corpuscular Hemoglobin Concent 34 g/dL (31-37) 34 g/dL (31-37) Red Cell Distribution Width 13.3 % (11.5-14.5) 13.4 % (11.5-14.5) Platelet Count 193 x10^3/uL (140-400) 189 x10^3/uL (140-400) Neutrophils (%) (Auto) 84 % (31-73) 85 % (31-73) Lymphocytes (%) (Auto) 10 % (24-48) 9 % (24-48) Monocytes (%) (Auto) 5 % (0-9) 6 % (0-9) Eosinophils (%) (Auto) 1 % (0-3) 0 % (0-3) Basophils (%) (Auto) 0 % (0-3) 0 % (0-3) Neutrophils # (Auto) 9.5 x10^3uL (1.8-7.7) 9.6 x10^3uL (1.8-7.7) Lymphocytes # (Auto) 1.1 x10^3/uL (1.0-4.8) 1.0 x10^3/uL (1.0-4.8) Monocytes # (Auto) 0.5 x10^3/uL (0.0-1.1) 0.7 x10^3/uL (0.0-1.1) Eosinophils # (Auto) 0.1 x10^3/uL (0.0-0.7) 0.0 x10^3/uL (0.0-0.7) Basophils # (Auto) 0.0 x10^3/uL (0.0-0.2) 0.0 x10^3/uL (0.0-0.2) Sodium Level 140 mmol/L (136-145) 141 mmol/L (136-145) Potassium Level 4.0 mmol/L (3.5-5.1) 3.8 mmol/L (3.5-5.1) Chloride Level 103 mmol/L (98-107) 106 mmol/L (98-107) Carbon Dioxide Level 26 mmol/L (21-32) 26 mmol/L (21-32) Anion Gap 11 (6-14) 9 (6-14) Blood Urea Nitrogen 18 mg/dL (8-26) 13 mg/dL (8-26) Creatinine 1.1 mg/dL (0.7-1.3) 1.1 mg/dL (0.7-1.3) Estimated GFR (Cockcroft-Gault) 69.2 69.2 Glucose Level 210 mg/dL (70-99) 190 mg/dL (70-99) Calcium Level 8.7 mg/dL (8.5-10.1) 8.4 mg/dL (8.5-10.1) Glucose (Fingerstick) 164 mg/dL (70-99) 226 mg/dL (70-99) Test 01/06/17 07:25 Glucose (Fingerstick) 150 mg/dL (70-99) Review of Systems Review of Systems Denies chest pain Denies SOA Assessment and Plan Assessmemt and Plan Problems Medical Problems: (1) Fracture, tibia, shaft, open Status: Acute Assessment: 1. Displaced comminuted fracture of shaft of left tibia - d/t traumatic machinery event - s/p open repair 01/05 2. DM2 3. HTN 4. Obesity 5. Leukocytosis - reactive 6. Right abdominal laceration/bruise secondary to above trauma Plan: Appreciate surgery input: Open treatment of tibial shaft fracture with plate and screws. Irrigation and debridement for open fracture including skin, subcutaneous tissue, fascia, periosteum, and bone. Removal of multiple deep foreign bodies-metal fragments within the tendon sheath and subcutaneous tissues and within the bone. Continue wound care Continue pain control Continue home meds SSI Check labs in am PT/OT Disp: most likely will stay a few days, d/c when ok with ortho Problems: Comment Review of Relevant I have reviewed the following items shashank (where applicable) has been applied. Labs Laboratory Tests Test 01/05/17 12:15 01/05/17 18:53 01/05/17 20:45 01/06/17 05:29 White Blood Count 11.3 x10^3/uL (4.0-11.0) 11.3 x10^3/uL (4.0-11.0) Red Blood Count 4.97 x10^6/uL (4.30-5.70) 4.39 x10^6/uL (4.30-5.70) Hemoglobin 14.5 g/dL (13.0-17.5) 13.0 g/dL (13.0-17.5) Hematocrit 43.4 % (39.0-53.0) 38.6 % (39.0-53.0) Mean Corpuscular Volume 87 fL (79-100) 88 fL (79-100) Mean Corpuscular Hemoglobin 29 pg (25-35) 30 pg (25-35) Mean Corpuscular Hemoglobin Concent 34 g/dL (31-37) 34 g/dL (31-37) Red Cell Distribution Width 13.3 % (11.5-14.5) 13.4 % (11.5-14.5) Platelet Count 193 x10^3/uL (140-400) 189 x10^3/uL (140-400) Neutrophils (%) (Auto) 84 % (31-73) 85 % (31-73) Lymphocytes (%) (Auto) 10 % (24-48) 9 % (24-48) Monocytes (%) (Auto) 5 % (0-9) 6 % (0-9) Eosinophils (%) (Auto) 1 % (0-3) 0 % (0-3) Basophils (%) (Auto) 0 % (0-3) 0 % (0-3) Neutrophils # (Auto) 9.5 x10^3uL (1.8-7.7) 9.6 x10^3uL (1.8-7.7) Lymphocytes # (Auto) 1.1 x10^3/uL (1.0-4.8) 1.0 x10^3/uL (1.0-4.8) Monocytes # (Auto) 0.5 x10^3/uL (0.0-1.1) 0.7 x10^3/uL (0.0-1.1) Eosinophils # (Auto) 0.1 x10^3/uL (0.0-0.7) 0.0 x10^3/uL (0.0-0.7) Basophils # (Auto) 0.0 x10^3/uL (0.0-0.2) 0.0 x10^3/uL (0.0-0.2) Sodium Level 140 mmol/L (136-145) 141 mmol/L (136-145) Potassium Level 4.0 mmol/L (3.5-5.1) 3.8 mmol/L (3.5-5.1) Chloride Level 103 mmol/L (98-107) 106 mmol/L (98-107) Carbon Dioxide Level 26 mmol/L (21-32) 26 mmol/L (21-32) Anion Gap 11 (6-14) 9 (6-14) Blood Urea Nitrogen 18 mg/dL (8-26) 13 mg/dL (8-26) Creatinine 1.1 mg/dL (0.7-1.3) 1.1 mg/dL (0.7-1.3) Estimated GFR (Cockcroft-Gault) 69.2 69.2 Glucose Level 210 mg/dL (70-99) 190 mg/dL (70-99) Calcium Level 8.7 mg/dL (8.5-10.1) 8.4 mg/dL (8.5-10.1) Glucose (Fingerstick) 164 mg/dL (70-99) 226 mg/dL (70-99) Test 01/06/17 07:25 Glucose (Fingerstick) 150 mg/dL (70-99) Laboratory Tests Test 01/05/17 12:15 01/05/17 18:53 01/05/17 20:45 01/06/17 05:29 White Blood Count 11.3 x10^3/uL (4.0-11.0) 11.3 x10^3/uL (4.0-11.0) Red Blood Count 4.97 x10^6/uL (4.30-5.70) 4.39 x10^6/uL (4.30-5.70) Hemoglobin 14.5 g/dL (13.0-17.5) 13.0 g/dL (13.0-17.5) Hematocrit 43.4 % (39.0-53.0) 38.6 % (39.0-53.0) Mean Corpuscular Volume 87 fL (79-100) 88 fL (79-100) Mean Corpuscular Hemoglobin 29 pg (25-35) 30 pg (25-35) Mean Corpuscular Hemoglobin Concent 34 g/dL (31-37) 34 g/dL (31-37) Red Cell Distribution Width 13.3 % (11.5-14.5) 13.4 % (11.5-14.5) Platelet Count 193 x10^3/uL (140-400) 189 x10^3/uL (140-400) Neutrophils (%) (Auto) 84 % (31-73) 85 % (31-73) Lymphocytes (%) (Auto) 10 % (24-48) 9 % (24-48) Monocytes (%) (Auto) 5 % (0-9) 6 % (0-9) Eosinophils (%) (Auto) 1 % (0-3) 0 % (0-3) Basophils (%) (Auto) 0 % (0-3) 0 % (0-3) Neutrophils # (Auto) 9.5 x10^3uL (1.8-7.7) 9.6 x10^3uL (1.8-7.7) Lymphocytes # (Auto) 1.1 x10^3/uL (1.0-4.8) 1.0 x10^3/uL (1.0-4.8) Monocytes # (Auto) 0.5 x10^3/uL (0.0-1.1) 0.7 x10^3/uL (0.0-1.1) Eosinophils # (Auto) 0.1 x10^3/uL (0.0-0.7) 0.0 x10^3/uL (0.0-0.7) Basophils # (Auto) 0.0 x10^3/uL (0.0-0.2) 0.0 x10^3/uL (0.0-0.2) Sodium Level 140 mmol/L (136-145) 141 mmol/L (136-145) Potassium Level 4.0 mmol/L (3.5-5.1) 3.8 mmol/L (3.5-5.1) Chloride Level 103 mmol/L (98-107) 106 mmol/L (98-107) Carbon Dioxide Level 26 mmol/L (21-32) 26 mmol/L (21-32) Anion Gap 11 (6-14) 9 (6-14) Blood Urea Nitrogen 18 mg/dL (8-26) 13 mg/dL (8-26) Creatinine 1.1 mg/dL (0.7-1.3) 1.1 mg/dL (0.7-1.3) Estimated GFR (Cockcroft-Gault) 69.2 69.2 Glucose Level 210 mg/dL (70-99) 190 mg/dL (70-99) Calcium Level 8.7 mg/dL (8.5-10.1) 8.4 mg/dL (8.5-10.1) Glucose (Fingerstick) 164 mg/dL (70-99) 226 mg/dL (70-99) Test 01/06/17 07:25 Glucose (Fingerstick) 150 mg/dL (70-99) Medications Current Medications Fentanyl Citrate (Fentanyl 2ml Vial) 50 mcg PRN Q15MIN PRN IV PAIN GREATER THAN 3/10 Last administered on 01/05/17 14:15; Start 01/05/17 at 12:00; Stop at 11:59 Lidocaine/Sodium Bicarbonate (Buffered Lidocaine 1%) 20 ml 1X ONCE IJ ; Start 01/05/17 at 12:00; Stop 01/05/17 at 12:07; Status DC Cefazolin Sodium/ Dextrose 50 ml @ 100 mls/hr 1X ONCE IV Last administered on 01/05/17 13:14; Start 01/05/17 at 13:00; Stop 01/05/17 at 13:29; Status DC Ondansetron HCl (Zofran) 4 mg PRN Q8HRS PRN IV NAUSEA/VOMITING; Start 01/05/17 at 14:00; Stop 01/05/17 at 14:53; Status DC Morphine Sulfate 4 mg PRN Q2HR PRN IV PAIN Last administered on 01/05/17 15:19 ; Start 01/05/17 at 14:00; Stop 01/05/17 at 19:05; Status DC Acetaminophen (Tylenol) 650 mg PRN Q4HRS PRN PO FEVER; Start 01/05/17 at 14:00 ; Stop 01/05/17 at 14:53; Status DC Insulin Aspart (NovoLOG) 0-5 UNITS TIDWMEALS SQ ; Start 01/05/17 at 17:00; Stop 01/05/17 at 17:00; Status DC Dextrose (Dextrose 50%-Water Syringe) 12.5 gm PRN Q15MIN PRN IV SEE COMMENTS; Start 01/05/17 at 14:00; Stop 01/05/17 at 14:53; Status DC Ondansetron HCl (Zofran) 4 mg PRN Q6HRS PRN IV NAUSEA/VOMITING; Start 01/05/17 at 14:15; Stop 01/06/17 at 14:14 Fentanyl Citrate (Fentanyl 2ml Vial) 25 mcg PRN Q5MIN PRN IV MILD PAIN; Start 01/05/17 at 14:15; Stop 01/06/17 at 14:14 Fentanyl Citrate (Fentanyl 2ml Vial) 50 mcg PRN Q5MIN PRN IV MODERATE PAIN Last administered on 01/05/17 19:36; Start 01/05/17 at 14:15; Stop 01/06/17 at 14:14 Morphine Sulfate 1 mg PRN Q10MIN PRN IV SEVERE PAIN; Start 01/05/17 at 14:15; Stop 01/06/17 at 14:14 Ringer's Solution 1,000 ml @ 0 mls/hr Q0M IV Last administered on 01/05/17 15 :50; Start 01/05/17 at 14:07; Stop 01/06/17 at 02:06; Status DC Lidocaine HCl 2 ml PRN 1X PRN ID PRIOR TO IV START; Start 01/05/17 at 14:15; Stop 01/06/17 at 14:14 Hydromorphone HCl (Dilaudid) 0.5 mg PRN Q10MIN PRN IV SEV PAIN, Second choice; Start 01/05/17 at 14:15; Stop 01/06/17 at 14:14 Prochlorperazine Edisylate (Compazine) 5 mg PACU PRN PRN IV NAUSEA, MRX1; Start 01/05/17 at 14:15; Stop 01/06/17 at 14:14 Insulin Aspart (NovoLOG) 0-9 UNITS TIDWMEALS SQ ; Start 01/05/17 at 17:00 Dextrose (Dextrose 50%-Water Syringe) 12.5 gm PRN Q15MIN PRN IV SEE COMMENTS; Start 01/05/17 at 15:00; Stop 01/05/17 at 19:05; Status DC Acetaminophen (Tylenol) 650 mg PRN Q6HRS PRN PO FEVER; Start 01/05/17 at 15:00 Ondansetron HCl (Zofran) 4 mg PRN Q6HRS PRN IV NAUSEA/VOMITING; Start 01/05/17 at 15:00 Oxycodone/ Acetaminophen (Percocet 5/325) 1 tab PRN Q4HRS PRN PO PAIN; Start at 15:00 Bupivacaine HCl/ Epinephrine Bitart (Marcaine-Epi 0.25%-1:[id number]) 50 ml STK-MED ONCE .ROUTE Last administered on 01/05/17t 17:17; Start 01/05/17 at 15:58; Stop 01/05/17 at 15:59; Status DC Fentanyl Citrate (Fentanyl 5ml Vial) 250 mcg STK-MED ONCE .ROUTE ; Start at 16:23; Stop 01/05/17 at 16:24; Status DC Sevoflurane (Ultane) 60 ml STK-MED ONCE IH ; Start 01/05/17 at 16:24; Stop 01/05 at 16:25; Status DC Lidocaine HCl (Lidocaine Pf 2% Vial) 5 ml STK-MED ONCE .ROUTE ; Start 01/05/17 at 16:24; Stop 01/05/17 at 16:25; Status DC Dexamethasone Sodium Phosphate (Decadron) 20 mg STK-MED ONCE .ROUTE ; Start at 16:24; Stop 01/05/17 at 16:25; Status DC Propofol 20 ml @ As Directed STK-MED ONCE IV ; Start 01/05/17 at 16:24; Stop at 16:25; Status DC Ondansetron HCl (Zofran) 4 mg STK-MED ONCE .ROUTE ; Start 01/05/17 at 16:24; Stop 01/05/17 at 16:25; Status DC Cefazolin Sodium 50 ml @ As Directed STK-MED ONCE IV ; Start 01/05/17 at 16:59; Stop 01/05/17 at 17:00; Status DC Cefazolin Sodium 50 ml @ As Directed STK-MED ONCE IV ; Start 01/05/17 at 17:11; Stop 01/05/17 at 17:12; Status DC Oxycodone HCl (Roxicodone) 5 mg PRN Q3HRS PRN PO PAIN; Start 01/05/17 at 19:00 Morphine Sulfate 2 mg PRN Q1HR PRN IV PAIN; Start 01/05/17 at 19:00 Fentanyl Citrate (Fentanyl 2ml Vial) 25 mcg PRN Q1HR PRN IV PAIN; Start at 19:00 Senna/Docusate Sodium (Senna Plus) 1 tab DAILY PO Last administered on 09:38; Start 01/06/17 at 09:00 Polyethylene Glycol (miraLAX PACKET) 17 gm PRN DAILY PRN PO CONSTIPATION; Start 01/05/17 at 19:00 Vitamin D (Vitamin D3) 1,000 unit DAILY PO Last administered on 01/06/17 09:38 ; Start 01/06/17 at 09:00 Ondansetron HCl (Zofran) 4 mg PRN Q4HRS PRN IV NAUSEA/VOMITING; Start 01/05/17 at 19:00 Aspirin (Josette Aspirin) 325 mg DAILYWBKFT PO Last administered on 01/06/17 09: 38; Start 01/06/17 at 08:00 Magnesium Hydroxide (Milk Of Magnesia) 2,400 mg 1X PRN PRN PO CONSTIPATION; Start 01/06/17 at 06:00; Stop 01/07/17 at 05:59 Bisacodyl (Dulcolax Supp) 10 mg 1X PRN PRN [place] CONSTIPATION; Start 01/06/17 at 16:00; Stop 01/07/17 at 15:59 Acetaminophen/ Hydrocodone Bitart (Lortab 7.5/325) 1 tab PRN Q4HRS PRN PO PAIN ; Start 01/05/17 at 19:00 Morphine Sulfate 4 mg PRN Q2HR PRN IV PAIN; Start 01/05/17 at 19:00 Acetaminophen/ Hydrocodone Bitart (Lortab 7.5/325) 2 tab PRN Q4HRS PRN PO PAIN Last administered on 01/06/17 09:39; Start 01/05/17 at 19:00 Dextrose (Dextrose 50%-Water Syringe) 12.5 gm PRN Q15MIN PRN IV SEE COMMENTS; Start 01/05/17 at 19:00 Cefazolin Sodium/ Dextrose 50 ml @ 100 mls/hr Q6H IV Last administered on 01/06 05:14; Start 01/05/17 at 23:00; Stop 01/07/17 at 05:29 Calcium Carbonate/ Glycine (Oscal) 500 mg TIDAFTMEAL PO Last administered on 09:38; Start 01/06/17 at 09:00 Iohexol (Omnipaque 300 Mg/ml) 75 ml 1X ONCE IV Last administered on 5/24/17at 09:14; Start 01/06/17 at 07:00; Stop 01/06/17 at 07:01; Status DC Info (Do NOT chart on this entry -- for MONITORING) 1 each PRN DAILY PRN MC SEE COMMENTS; Start 01/06/17 at 07:00; Stop 01/08/17 at 06:59 Vitals/I & O Vital Sign - Last 24 Hours 01/05/17 01/05/17 01/05/17 01/05/17 12:10 12:10 12:22 12:30 Temp 98.4 98.4 Pulse 72 75 70 Resp 18 20 18 15 B/P (MAP) 150/85 (106) 143/68 (93) Pulse Ox 98 97 98 O2 Delivery Room Air Room Air Room Air Room Air 01/05/17 01/05/17 01/05/17 01/05/17 12:33 12:45 13:00 13:13 Pulse 66 82 Resp 18 21 21 17 B/P (MAP) 140/67 (91) 134/72 (92) Pulse Ox 97 97 98 98 O2 Delivery Room Air Room Air 01/05/17 01/05/17 01/05/17 01/05/17 13:15 13:30 13:45 14:00 Pulse 76 66 76 72 Resp 16 22 21 22 B/P (MAP) 124/66 (85) 138/67 (90) 128/71 (90) 123/70 (87) Pulse Ox 97 97 97 98 O2 Delivery Room Air 01/05/17 01/05/17 01/05/17 01/05/17 14:15 15:00 15:19 15:40 Temp 97.9 98.4 97.9 98.4 Pulse 80 86 Resp 17 20 20 B/P (MAP) 113/63 (80) 148/71 Pulse Ox 97 96 95 O2 Delivery Room Air Room Air Room Air Room Air 01/05/17 01/05/17 01/05/17 01/05/17 18:47 18:47 19:02 19:14 Temp 98.6 98.7 98.6 98.7 Pulse 82 80 Resp 16 18 18 B/P (MAP) 122/62 128/75 Pulse Ox 98 99 95 O2 Delivery Simple Mask Mask Simple Mask Room Air O2 Flow Rate 10 10 10 5/2301/05/17 01/05/17 01/05/17 19:17 19:28 19:32 19:36 Temp 98.7 98.7 98.7 98.7 Pulse 72 74 Resp 16 16 16 B/P (MAP) 118/66 146/79 Pulse Ox 95 95 95 O2 Delivery Room Air Room Air Room Air Room Air 01/05/17 01/05/17 01/05/17 01/05/17 20:00 20:15 20:30 20:42 Temp 97.6 97.6 Pulse 68 77 77 Resp 18 B/P (MAP) 126/70 (88) 137/82 (100) 141/82 (101) Pulse Ox 91 96 96 91 O2 Delivery Room Air Room Air Room Air Room Air 01/05/17 01/05/17 01/05/17 01/05/17 20:45 21:15 21:45 21:45 Pulse 83 75 78 B/P (MAP) 116/86 (96) 123/66 (85) 113/67 (82) Pulse Ox 92 96 96 91 O2 Delivery Room Air Room Air Room Air Room Air 01/05/17 01/05/17 01/06/17 01/06/17 22:45 23:00 03:00 07:00 Temp 98.7 98.0 98.4 98.7 98.0 98.4 Pulse 78 79 77 84 Resp 18 20 B/P (MAP) 115/67 (83) 119/64 (82) 110/61 (77) 120/70 (87) Pulse Ox 96 98 96 O2 Delivery Room Air Room Air Room Air Room Air 01/06/17 09:39 Resp 18 O2 Delivery Room Air Intake and Output 01/05/17 01/05/17 01/06/17 15:00 23:00 07:00 Intake Total 50 ml 850 ml 850 ml Output Total 100 ml 1250 ml Balance 50 ml 750 ml -400 ml KATTNIAL K III DO January 06, 2017 09:56
[2017-01-06 11:00] VITALS: BP 125/66
--- NOTE | 2017-01-06 11:41 | RAD ---
CT of the abdomen and pelvis with contrast, 01/06/2017: History: Abdominal trauma Multidetector CT imaging was performed following an IV bolus injection of iodinated contrast material. No oral contrast material was administered for this study. There is mild linear atelectasis or scarring in the left base. There is no evidence of pleural fluid or pneumothorax. Granulomatous calcifications are present in the lower chest. The liver and spleen are unremarkable without evidence of laceration. The gallbladder shows no abnormality. The pancreas is unremarkable. The kidneys show no evidence of mass, hydronephrosis or laceration. There is minimal bilateral perinephric edema. The abdominal aorta is of normal caliber. No abdominal or pelvic adenopathy is seen. There is mild dilatation of both inguinal rings without evidence of bowel herniation. The bowel loops are unremarkable. No free fluid or free air is evident in the abdomen or pelvis. There is a transitional-type vertebra at the lumbosacral junction. There are mild scattered marginal spurs. IMPRESSION: 1. Minimal nonspecific bilateral perinephric edema. 2. Otherwise no acute abdominal or pelvic abnormality is detected. PQRS Compliance Statement: One or more of the following individualized dose reduction techniques were utilized for this examination: 1. Automated exposure control 2. Adjustment of the mA and/or kV according to patient size 3. Use of iterative reconstruction technique
--- NOTE | 2017-01-06 12:38 | PDOC ---
SURGICAL PROGRESS NOTE Subjective Pt feels much better, darlene diet, no abd pain, LLE feels better Vital Signs Vital Signs Date Time Temp Pulse Resp B/P (MAP) Pulse Ox O2 Delivery O2 Flow Rate FiO2 01/06/17 11:01 16 Room Air 01/06/17 07:00 98.4 84 120/70 (87) 96 98.4 01/05/17 19:02 10 I&O Intake and Output 01/06/17 07:00 Intake Total 1750 ml Output Total 1350 ml Balance 400 ml Intake Oral 750 ml IV Total 1000 ml Output Urine Total 1250 ml Estimated Blood Loss 100 ml General: Alert, Oriented X3, Cooperative, No acute distress Abdomen: Soft, No tenderness, Other (mild ecchymosis RLQ, no masses or hernias) Labs Laboratory Tests Test 01/05/17 12:15 01/05/17 18:53 01/05/17 20:45 01/06/17 05:29 White Blood Count 11.3 x10^3/uL (4.0-11.0) 11.3 x10^3/uL (4.0-11.0) Red Blood Count 4.97 x10^6/uL (4.30-5.70) 4.39 x10^6/uL (4.30-5.70) Hemoglobin 14.5 g/dL (13.0-17.5) 13.0 g/dL (13.0-17.5) Hematocrit 43.4 % (39.0-53.0) 38.6 % (39.0-53.0) Mean Corpuscular Volume 87 fL (79-100) 88 fL (79-100) Mean Corpuscular Hemoglobin 29 pg (25-35) 30 pg (25-35) Mean Corpuscular Hemoglobin Concent 34 g/dL (31-37) 34 g/dL (31-37) Red Cell Distribution Width 13.3 % (11.5-14.5) 13.4 % (11.5-14.5) Platelet Count 193 x10^3/uL (140-400) 189 x10^3/uL (140-400) Neutrophils (%) (Auto) 84 % (31-73) 85 % (31-73) Lymphocytes (%) (Auto) 10 % (24-48) 9 % (24-48) Monocytes (%) (Auto) 5 % (0-9) 6 % (0-9) Eosinophils (%) (Auto) 1 % (0-3) 0 % (0-3) Basophils (%) (Auto) 0 % (0-3) 0 % (0-3) Neutrophils # (Auto) 9.5 x10^3uL (1.8-7.7) 9.6 x10^3uL (1.8-7.7) Lymphocytes # (Auto) 1.1 x10^3/uL (1.0-4.8) 1.0 x10^3/uL (1.0-4.8) Monocytes # (Auto) 0.5 x10^3/uL (0.0-1.1) 0.7 x10^3/uL (0.0-1.1) Eosinophils # (Auto) 0.1 x10^3/uL (0.0-0.7) 0.0 x10^3/uL (0.0-0.7) Basophils # (Auto) 0.0 x10^3/uL (0.0-0.2) 0.0 x10^3/uL (0.0-0.2) Sodium Level 140 mmol/L (136-145) 141 mmol/L (136-145) Potassium Level 4.0 mmol/L (3.5-5.1) 3.8 mmol/L (3.5-5.1) Chloride Level 103 mmol/L (98-107) 106 mmol/L (98-107) Carbon Dioxide Level 26 mmol/L (21-32) 26 mmol/L (21-32) Anion Gap 11 (6-14) 9 (6-14) Blood Urea Nitrogen 18 mg/dL (8-26) 13 mg/dL (8-26) Creatinine 1.1 mg/dL (0.7-1.3) 1.1 mg/dL (0.7-1.3) Estimated GFR (Cockcroft-Gault) 69.2 69.2 Glucose Level 210 mg/dL (70-99) 190 mg/dL (70-99) Calcium Level 8.7 mg/dL (8.5-10.1) 8.4 mg/dL (8.5-10.1) Glucose (Fingerstick) 164 mg/dL (70-99) 226 mg/dL (70-99) Test 01/06/17 07:25 01/06/17 11:31 Glucose (Fingerstick) 150 mg/dL (70-99) 234 mg/dL (70-99) Laboratory Tests Test 01/05/17 18:53 01/05/17 20:45 01/06/17 05:29 01/06/17 07:25 Glucose (Fingerstick) 164 mg/dL (70-99) 226 mg/dL (70-99) 150 mg/dL (70-99) White Blood Count 11.3 x10^3/uL (4.0-11.0) Red Blood Count 4.39 x10^6/uL (4.30-5.70) Hemoglobin 13.0 g/dL (13.0-17.5) Hematocrit 38.6 % (39.0-53.0) Mean Corpuscular Volume 88 fL (79-100) Mean Corpuscular Hemoglobin 30 pg (25-35) Mean Corpuscular Hemoglobin Concent 34 g/dL (31-37) Red Cell Distribution Width 13.4 % (11.5-14.5) Platelet Count 189 x10^3/uL (140-400) Neutrophils (%) (Auto) 85 % (31-73) Lymphocytes (%) (Auto) 9 % (24-48) Monocytes (%) (Auto) 6 % (0-9) Eosinophils (%) (Auto) 0 % (0-3) Basophils (%) (Auto) 0 % (0-3) Neutrophils # (Auto) 9.6 x10^3uL (1.8-7.7) Lymphocytes # (Auto) 1.0 x10^3/uL (1.0-4.8) Monocytes # (Auto) 0.7 x10^3/uL (0.0-1.1) Eosinophils # (Auto) 0.0 x10^3/uL (0.0-0.7) Basophils # (Auto) 0.0 x10^3/uL (0.0-0.2) Sodium Level 141 mmol/L (136-145) Potassium Level 3.8 mmol/L (3.5-5.1) Chloride Level 106 mmol/L (98-107) Carbon Dioxide Level 26 mmol/L (21-32) Anion Gap 9 (6-14) Blood Urea Nitrogen 13 mg/dL (8-26) Creatinine 1.1 mg/dL (0.7-1.3) Estimated GFR (Cockcroft-Gault) 69.2 Glucose Level 190 mg/dL (70-99) Calcium Level 8.4 mg/dL (8.5-10.1) Test 01/06/17 11:31 Glucose (Fingerstick) 234 mg/dL (70-99) Problem List Problems Medical Problems: (1) Fracture, tibia, shaft, open Status: Acute Assessment/Plan CT a/p looks good cont supportive care no gen surgery needs, will sign off Problems: TASH HANSEN MD January 06, 2017 12:38
[2017-01-06 15:00] VITALS: BP 114/59
[2017-01-06] MEDS ORDERED: BISACODYL 10 MG SUPP.RECT. PR PRN (16:00)
[2017-01-06 18:53] LABS: HEMATOCRIT 36.1 % (39.0-53.0); HEMOGLOBIN 12.3 g/dL (13.0-17.5)
[2017-01-06 19:00] VITALS: BP 102/52
--- NOTE | 2017-01-06 19:14 | PDOC ---
PROGRESS NOTES Subjective Subjective Feeling much better today. Pain rated 1/10. Objective Vital Signs Vital Signs Date Time Temp Pulse Resp B/P (MAP) Pulse Ox O2 Delivery O2 Flow Rate FiO2 01/06/17 16:45 18 Room Air 01/06/17 15:00 98.8 82 114/59 (77) 95 98.8 01/05/17 19:02 10 Physical Exam Sitting in recliner with left leg elevated. Dressing with serosanguineous drainage. Calf soft and nontender. +df/pf. Sensation to light touch mildly diminished at toes, due to peripheral neuropathy, but no change since surgery. + dp Labs Laboratory Tests Test 01/05/17 12:15 01/05/17 18:53 01/05/17 20:45 01/06/17 05:29 White Blood Count 11.3 x10^3/uL (4.0-11.0) 11.3 x10^3/uL (4.0-11.0) Red Blood Count 4.97 x10^6/uL (4.30-5.70) 4.39 x10^6/uL (4.30-5.70) Hemoglobin 14.5 g/dL (13.0-17.5) 13.0 g/dL (13.0-17.5) Hematocrit 43.4 % (39.0-53.0) 38.6 % (39.0-53.0) Mean Corpuscular Volume 87 fL (79-100) 88 fL (79-100) Mean Corpuscular Hemoglobin 29 pg (25-35) 30 pg (25-35) Mean Corpuscular Hemoglobin Concent 34 g/dL (31-37) 34 g/dL (31-37) Red Cell Distribution Width 13.3 % (11.5-14.5) 13.4 % (11.5-14.5) Platelet Count 193 x10^3/uL (140-400) 189 x10^3/uL (140-400) Neutrophils (%) (Auto) 84 % (31-73) 85 % (31-73) Lymphocytes (%) (Auto) 10 % (24-48) 9 % (24-48) Monocytes (%) (Auto) 5 % (0-9) 6 % (0-9) Eosinophils (%) (Auto) 1 % (0-3) 0 % (0-3) Basophils (%) (Auto) 0 % (0-3) 0 % (0-3) Neutrophils # (Auto) 9.5 x10^3uL (1.8-7.7) 9.6 x10^3uL (1.8-7.7) Lymphocytes # (Auto) 1.1 x10^3/uL (1.0-4.8) 1.0 x10^3/uL (1.0-4.8) Monocytes # (Auto) 0.5 x10^3/uL (0.0-1.1) 0.7 x10^3/uL (0.0-1.1) Eosinophils # (Auto) 0.1 x10^3/uL (0.0-0.7) 0.0 x10^3/uL (0.0-0.7) Basophils # (Auto) 0.0 x10^3/uL (0.0-0.2) 0.0 x10^3/uL (0.0-0.2) Sodium Level 140 mmol/L (136-145) 141 mmol/L (136-145) Potassium Level 4.0 mmol/L (3.5-5.1) 3.8 mmol/L (3.5-5.1) Chloride Level 103 mmol/L (98-107) 106 mmol/L (98-107) Carbon Dioxide Level 26 mmol/L (21-32) 26 mmol/L (21-32) Anion Gap 11 (6-14) 9 (6-14) Blood Urea Nitrogen 18 mg/dL (8-26) 13 mg/dL (8-26) Creatinine 1.1 mg/dL (0.7-1.3) 1.1 mg/dL (0.7-1.3) Estimated GFR (Cockcroft-Gault) 69.2 69.2 Glucose Level 210 mg/dL (70-99) 190 mg/dL (70-99) Calcium Level 8.7 mg/dL (8.5-10.1) 8.4 mg/dL (8.5-10.1) Glucose (Fingerstick) 164 mg/dL (70-99) 226 mg/dL (70-99) Test 01/06/17 07:25 01/06/17 11:31 01/06/17 16:03 01/06/17 18:35 Glucose (Fingerstick) 150 mg/dL (70-99) 234 mg/dL (70-99) 253 mg/dL (70-99) Hemoglobin 12.3 g/dL (13.0-17.5) Hematocrit 36.1 % (39.0-53.0) Mean Corpuscular Hemoglobin Concent 34 g/dL (31-37) Laboratory Tests Test 01/05/17 20:45 01/06/17 05:29 01/06/17 07:25 01/06/17 11:31 Glucose (Fingerstick) 226 mg/dL (70-99) 150 mg/dL (70-99) 234 mg/dL (70-99) White Blood Count 11.3 x10^3/uL (4.0-11.0) Red Blood Count 4.39 x10^6/uL (4.30-5.70) Hemoglobin 13.0 g/dL (13.0-17.5) Hematocrit 38.6 % (39.0-53.0) Mean Corpuscular Volume 88 fL (79-100) Mean Corpuscular Hemoglobin 30 pg (25-35) Mean Corpuscular Hemoglobin Concent 34 g/dL (31-37) Red Cell Distribution Width 13.4 % (11.5-14.5) Platelet Count 189 x10^3/uL (140-400) Neutrophils (%) (Auto) 85 % (31-73) Lymphocytes (%) (Auto) 9 % (24-48) Monocytes (%) (Auto) 6 % (0-9) Eosinophils (%) (Auto) 0 % (0-3) Basophils (%) (Auto) 0 % (0-3) Neutrophils # (Auto) 9.6 x10^3uL (1.8-7.7) Lymphocytes # (Auto) 1.0 x10^3/uL (1.0-4.8) Monocytes # (Auto) 0.7 x10^3/uL (0.0-1.1) Eosinophils # (Auto) 0.0 x10^3/uL (0.0-0.7) Basophils # (Auto) 0.0 x10^3/uL (0.0-0.2) Sodium Level 141 mmol/L (136-145) Potassium Level 3.8 mmol/L (3.5-5.1) Chloride Level 106 mmol/L (98-107) Carbon Dioxide Level 26 mmol/L (21-32) Anion Gap 9 (6-14) Blood Urea Nitrogen 13 mg/dL (8-26) Creatinine 1.1 mg/dL (0.7-1.3) Estimated GFR (Cockcroft-Gault) 69.2 Glucose Level 190 mg/dL (70-99) Calcium Level 8.4 mg/dL (8.5-10.1) Test 01/06/17 16:03 01/06/17 18:35 Glucose (Fingerstick) 253 mg/dL (70-99) Hemoglobin 12.3 g/dL (13.0-17.5) Hematocrit 36.1 % (39.0-53.0) Mean Corpuscular Hemoglobin Concent 34 g/dL (31-37) Assessment Assessment POD #1 left distal tibia ORIF Problems: Plan Plan of Care Continue POC including DVT ppx, therapy, and IV abx for 48 hours for open fracture. Plan discharge to home tomorrow. *Late entry, the patient was seen and examined this AM. VITOR MATHEWS January 06, 2017 19:14
[2017-01-06 23:00] VITALS: BP 134/83
[2017-01-07] MEDS: HYDROcodone/APAP 7.5/325MG 1 TAB TABLET PO PRN ×6 (01:04→21:37)
[2017-01-07 03:00] VITALS: BP 114/73
[2017-01-07 07:00] VITALS: BP 120/69
[2017-01-07 08:35] LABS: BASO % 0 % (0-3); EOS % 1 % (0-3); HEMATOCRIT 37.2 % (39.0-53.0); HEMOGLOBIN 12.6 g/dL (13.0-17.5); LYMPH # 1.2 x10^3/uL (1.0-4.8); LYMPH % 14 % (24-48); MEAN CORPUSCULAR HEMOGLOBIN 30 pg (25-35); MEAN CORPUSCULAR HGB CONC 34 g/dL (31-37); MEAN CORPUSCULAR VOLUME 88 fL (79-100); MONO % 9 % (0-9); NEUT % 75 % (31-73); PLATELET COUNT 164 x10^3/uL (140-400); RED BLOOD COUNT 4.23 x10^6/uL (4.30-5.70); RED CELL DISTRIBUTION WIDTH 13.1 % (11.5-14.5); WHITE BLOOD COUNT 8.5 x10^3/uL (4.0-11.0)
[2017-01-07] MEDS: CHOLECALCIFEROL (VITAMIN D3) 1,000 UNIT TABLET PO SCH (08:37)
[2017-01-07] MEDS: ASPIRIN 325 MG TABLET PO SCH (08:37)
[2017-01-07] MEDS: SENNOSIDES/DOCUSATE 8.6/50MG TABLET. PO SCH (08:37)
[2017-01-07] MEDS: CALCIUM CARBONATE 500 MG TABLET PO SCH ×3 (08:37→17:20)
[2017-01-07] MEDS: INSULIN ASPART 300 UNITS/3 ML INSULN.PEN SQ SCH ×3 (08:43→17:24)
[2017-01-07 08:54] LABS: CALCIUM 8.4 mg/dL (8.5-10.1); CREATININE 1.2 mg/dL (0.7-1.3); GFR 62.6; POTASSIUM 3.8 mmol/L (3.5-5.1)
--- NOTE | 2017-01-07 10:45 | PDOC ---
PROGRESS NOTES Chief Complaint Chief Complaint L tibial fx s/p OR POD # 1 Left leg pain, redness, swelling History of Present Illness History of Present Illness COmplains of left leg pain, redness, mild swelling HAs wrapping that was real tight per staff LAbs today look good NO fevers NOt much breakfast today PLAN: Check US left LE HH planned upon dc Dw pt and RN and and SW Vitals Vitals Vital Signs Date Time Temp Pulse Resp B/P (MAP) Pulse Ox O2 Delivery O2 Flow Rate FiO2 01/07/17 10:22 Room Air 01/07/17 07:00 98.3 77 18 120/69 (86) 95 98.3 Physical Exam General: Alert, Oriented X3, Cooperative, No acute distress Heart: Regular rate, No murmurs Lungs: Clear, Other (no wheezing) Abdomen: Soft, No tenderness, Other (mild ecchymosis RLQ, no masses or hernias) Extremities: No clubbing, No cyanosis, No edema, Normal pulses, Other (S/P left tibial fx repair, wound bandaged, Calf soft and nontender. Peripheral pulses and light touch sensation intact. Neurovascularly intact. ) Skin: No rashes, Other (Laceration over right anterior distal tibia approximately 6 cm x 2 cm) Labs LABS Laboratory Tests Test 01/06/17 11:31 01/06/17 16:03 01/06/17 18:35 01/06/17 20:21 Glucose (Fingerstick) 234 mg/dL (70-99) 253 mg/dL (70-99) 177 mg/dL (70-99) Hemoglobin 12.3 g/dL (13.0-17.5) Hematocrit 36.1 % (39.0-53.0) Mean Corpuscular Hemoglobin Concent 34 g/dL (31-37) Test 01/07/17 07:45 01/07/17 07:49 White Blood Count 8.5 x10^3/uL (4.0-11.0) Red Blood Count 4.23 x10^6/uL (4.30-5.70) Hemoglobin 12.6 g/dL (13.0-17.5) Hematocrit 37.2 % (39.0-53.0) Mean Corpuscular Volume 88 fL (79-100) Mean Corpuscular Hemoglobin 30 pg (25-35) Mean Corpuscular Hemoglobin Concent 34 g/dL (31-37) Red Cell Distribution Width 13.1 % (11.5-14.5) Platelet Count 164 x10^3/uL (140-400) Neutrophils (%) (Auto) 75 % (31-73) Lymphocytes (%) (Auto) 14 % (24-48) Monocytes (%) (Auto) 9 % (0-9) Eosinophils (%) (Auto) 1 % (0-3) Basophils (%) (Auto) 0 % (0-3) Neutrophils # (Auto) 6.4 x10^3uL (1.8-7.7) Lymphocytes # (Auto) 1.2 x10^3/uL (1.0-4.8) Monocytes # (Auto) 0.8 x10^3/uL (0.0-1.1) Eosinophils # (Auto) 0.1 x10^3/uL (0.0-0.7) Basophils # (Auto) 0.0 x10^3/uL (0.0-0.2) Sodium Level 142 mmol/L (136-145) Potassium Level 3.8 mmol/L (3.5-5.1) Chloride Level 107 mmol/L (98-107) Carbon Dioxide Level 27 mmol/L (21-32) Anion Gap 8 (6-14) Blood Urea Nitrogen 12 mg/dL (8-26) Creatinine 1.2 mg/dL (0.7-1.3) Estimated GFR (Cockcroft-Gault) 62.6 Glucose Level 184 mg/dL (70-99) Calcium Level 8.4 mg/dL (8.5-10.1) Glucose (Fingerstick) 183 mg/dL (70-99) Review of Systems Review of Systems left leg pain and swelling, no abd pain/nausea/emesis cp Assessment and Plan Assessmemt and Plan Problems Medical Problems: (1) Fracture, tibia, shaft, open Status: Acute Problems: Comment Review of Relevant I have reviewed the following items shashank (where applicable) has been applied. Labs Laboratory Tests Test 01/05/17 12:15 01/05/17 18:53 01/05/17 20:45 01/06/17 05:29 White Blood Count 11.3 x10^3/uL (4.0-11.0) 11.3 x10^3/uL (4.0-11.0) Red Blood Count 4.97 x10^6/uL (4.30-5.70) 4.39 x10^6/uL (4.30-5.70) Hemoglobin 14.5 g/dL (13.0-17.5) 13.0 g/dL (13.0-17.5) Hematocrit 43.4 % (39.0-53.0) 38.6 % (39.0-53.0) Mean Corpuscular Volume 87 fL (79-100) 88 fL (79-100) Mean Corpuscular Hemoglobin 29 pg (25-35) 30 pg (25-35) Mean Corpuscular Hemoglobin Concent 34 g/dL (31-37) 34 g/dL (31-37) Red Cell Distribution Width 13.3 % (11.5-14.5) 13.4 % (11.5-14.5) Platelet Count 193 x10^3/uL (140-400) 189 x10^3/uL (140-400) Neutrophils (%) (Auto) 84 % (31-73) 85 % (31-73) Lymphocytes (%) (Auto) 10 % (24-48) 9 % (24-48) Monocytes (%) (Auto) 5 % (0-9) 6 % (0-9) Eosinophils (%) (Auto) 1 % (0-3) 0 % (0-3) Basophils (%) (Auto) 0 % (0-3) 0 % (0-3) Neutrophils # (Auto) 9.5 x10^3uL (1.8-7.7) 9.6 x10^3uL (1.8-7.7) Lymphocytes # (Auto) 1.1 x10^3/uL (1.0-4.8) 1.0 x10^3/uL (1.0-4.8) Monocytes # (Auto) 0.5 x10^3/uL (0.0-1.1) 0.7 x10^3/uL (0.0-1.1) Eosinophils # (Auto) 0.1 x10^3/uL (0.0-0.7) 0.0 x10^3/uL (0.0-0.7) Basophils # (Auto) 0.0 x10^3/uL (0.0-0.2) 0.0 x10^3/uL (0.0-0.2) Sodium Level 140 mmol/L (136-145) 141 mmol/L (136-145) Potassium Level 4.0 mmol/L (3.5-5.1) 3.8 mmol/L (3.5-5.1) Chloride Level 103 mmol/L (98-107) 106 mmol/L (98-107) Carbon Dioxide Level 26 mmol/L (21-32) 26 mmol/L (21-32) Anion Gap 11 (6-14) 9 (6-14) Blood Urea Nitrogen 18 mg/dL (8-26) 13 mg/dL (8-26) Creatinine 1.1 mg/dL (0.7-1.3) 1.1 mg/dL (0.7-1.3) Estimated GFR (Cockcroft-Gault) 69.2 69.2 Glucose Level 210 mg/dL (70-99) 190 mg/dL (70-99) Calcium Level 8.7 mg/dL (8.5-10.1) 8.4 mg/dL (8.5-10.1) Glucose (Fingerstick) 164 mg/dL (70-99) 226 mg/dL (70-99) 25-Hydroxy Vitamin D Total 33.9 ng/mL (30.0-100.0) Test 01/06/17 07:25 01/06/17 11:31 01/06/17 16:03 01/06/17 18:35 Glucose (Fingerstick) 150 mg/dL (70-99) 234 mg/dL (70-99) 253 mg/dL (70-99) Hemoglobin 12.3 g/dL (13.0-17.5) Hematocrit 36.1 % (39.0-53.0) Mean Corpuscular Hemoglobin Concent 34 g/dL (31-37) Test 01/06/17 20:21 01/07/17 07:45 01/07/17 07:49 Glucose (Fingerstick) 177 mg/dL (70-99) 183 mg/dL (70-99) White Blood Count 8.5 x10^3/uL (4.0-11.0) Red Blood Count 4.23 x10^6/uL (4.30-5.70) Hemoglobin 12.6 g/dL (13.0-17.5) Hematocrit 37.2 % (39.0-53.0) Mean Corpuscular Volume 88 fL (79-100) Mean Corpuscular Hemoglobin 30 pg (25-35) Mean Corpuscular Hemoglobin Concent 34 g/dL (31-37) Red Cell Distribution Width 13.1 % (11.5-14.5) Platelet Count 164 x10^3/uL (140-400) Neutrophils (%) (Auto) 75 % (31-73) Lymphocytes (%) (Auto) 14 % (24-48) Monocytes (%) (Auto) 9 % (0-9) Eosinophils (%) (Auto) 1 % (0-3) Basophils (%) (Auto) 0 % (0-3) Neutrophils # (Auto) 6.4 x10^3uL (1.8-7.7) Lymphocytes # (Auto) 1.2 x10^3/uL (1.0-4.8) Monocytes # (Auto) 0.8 x10^3/uL (0.0-1.1) Eosinophils # (Auto) 0.1 x10^3/uL (0.0-0.7) Basophils # (Auto) 0.0 x10^3/uL (0.0-0.2) Sodium Level 142 mmol/L (136-145) Potassium Level 3.8 mmol/L (3.5-5.1) Chloride Level 107 mmol/L (98-107) Carbon Dioxide Level 27 mmol/L (21-32) Anion Gap 8 (6-14) Blood Urea Nitrogen 12 mg/dL (8-26) Creatinine 1.2 mg/dL (0.7-1.3) Estimated GFR (Cockcroft-Gault) 62.6 Glucose Level 184 mg/dL (70-99) Calcium Level 8.4 mg/dL (8.5-10.1) Laboratory Tests Test 01/06/17 11:31 01/06/17 16:03 01/06/17 18:35 01/06/17 20:21 Glucose (Fingerstick) 234 mg/dL (70-99) 253 mg/dL (70-99) 177 mg/dL (70-99) Hemoglobin 12.3 g/dL (13.0-17.5) Hematocrit 36.1 % (39.0-53.0) Mean Corpuscular Hemoglobin Concent 34 g/dL (31-37) Test 01/07/17 07:45 01/07/17 07:49 White Blood Count 8.5 x10^3/uL (4.0-11.0) Red Blood Count 4.23 x10^6/uL (4.30-5.70) Hemoglobin 12.6 g/dL (13.0-17.5) Hematocrit 37.2 % (39.0-53.0) Mean Corpuscular Volume 88 fL (79-100) Mean Corpuscular Hemoglobin 30 pg (25-35) Mean Corpuscular Hemoglobin Concent 34 g/dL (31-37) Red Cell Distribution Width 13.1 % (11.5-14.5) Platelet Count 164 x10^3/uL (140-400) Neutrophils (%) (Auto) 75 % (31-73) Lymphocytes (%) (Auto) 14 % (24-48) Monocytes (%) (Auto) 9 % (0-9) Eosinophils (%) (Auto) 1 % (0-3) Basophils (%) (Auto) 0 % (0-3) Neutrophils # (Auto) 6.4 x10^3uL (1.8-7.7) Lymphocytes # (Auto) 1.2 x10^3/uL (1.0-4.8) Monocytes # (Auto) 0.8 x10^3/uL (0.0-1.1) Eosinophils # (Auto) 0.1 x10^3/uL (0.0-0.7) Basophils # (Auto) 0.0 x10^3/uL (0.0-0.2) Sodium Level 142 mmol/L (136-145) Potassium Level 3.8 mmol/L (3.5-5.1) Chloride Level 107 mmol/L (98-107) Carbon Dioxide Level 27 mmol/L (21-32) Anion Gap 8 (6-14) Blood Urea Nitrogen 12 mg/dL (8-26) Creatinine 1.2 mg/dL (0.7-1.3) Estimated GFR (Cockcroft-Gault) 62.6 Glucose Level 184 mg/dL (70-99) Calcium Level 8.4 mg/dL (8.5-10.1) Glucose (Fingerstick) 183 mg/dL (70-99) Medications Current Medications Fentanyl Citrate (Fentanyl 2ml Vial) 50 mcg PRN Q15MIN PRN IV PAIN GREATER THAN 3/10 Last administered on 01/05/17 14:15; Start 01/05/17 at 12:00; Stop at 11:59; Status DC Lidocaine/Sodium Bicarbonate (Buffered Lidocaine 1%) 20 ml 1X ONCE IJ ; Start 01/05/17 at 12:00; Stop 01/05/17 at 12:07; Status DC Cefazolin Sodium/ Dextrose 50 ml @ 100 mls/hr 1X ONCE IV Last administered on 01/05/17 13:14; Start 01/05/17 at 13:00; Stop 01/05/17 at 13:29; Status DC Ondansetron HCl (Zofran) 4 mg PRN Q8HRS PRN IV NAUSEA/VOMITING; Start 01/05/17 at 14:00; Stop 01/05/17 at 14:53; Status DC Morphine Sulfate 4 mg PRN Q2HR PRN IV PAIN Last administered on 01/05/17 15:19 ; Start 01/05/17 at 14:00; Stop 01/05/17 at 19:05; Status DC Acetaminophen (Tylenol) 650 mg PRN Q4HRS PRN PO FEVER; Start 01/05/17 at 14:00 ; Stop 01/05/17 at 14:53; Status DC Insulin Aspart (NovoLOG) 0-5 UNITS TIDWMEALS SQ ; Start 01/05/17 at 17:00; Stop 01/05/17 at 17:00; Status DC Dextrose (Dextrose 50%-Water Syringe) 12.5 gm PRN Q15MIN PRN IV SEE COMMENTS; Start 01/05/17 at 14:00; Stop 01/05/17 at 14:53; Status DC Ondansetron HCl (Zofran) 4 mg PRN Q6HRS PRN IV NAUSEA/VOMITING; Start 01/05/17 at 14:15; Stop 01/06/17 at 14:14; Status DC Fentanyl Citrate (Fentanyl 2ml Vial) 25 mcg PRN Q5MIN PRN IV MILD PAIN; Start 01/05/17 at 14:15; Stop 01/06/17 at 14:14; Status DC Fentanyl Citrate (Fentanyl 2ml Vial) 50 mcg PRN Q5MIN PRN IV MODERATE PAIN Last administered on 01/05/17 19:36; Start 01/05/17 at 14:15; Stop 01/06/17 at 14:14; Status DC Morphine Sulfate 1 mg PRN Q10MIN PRN IV SEVERE PAIN; Start 01/05/17 at 14:15; Stop 01/06/17 at 14:14; Status DC Ringer's Solution 1,000 ml @ 0 mls/hr Q0M IV Last administered on 01/05/17 15 :50; Start 01/05/17 at 14:07; Stop 01/06/17 at 02:06; Status DC Lidocaine HCl 2 ml PRN 1X PRN ID PRIOR TO IV START; Start 01/05/17 at 14:15; Stop 01/06/17 at 14:14; Status DC Hydromorphone HCl (Dilaudid) 0.5 mg PRN Q10MIN PRN IV SEV PAIN, Second choice; Start 01/05/17 at 14:15; Stop 01/06/17 at 14:14; Status DC Prochlorperazine Edisylate (Compazine) 5 mg PACU PRN PRN IV NAUSEA, MRX1; Start 01/05/17 at 14:15; Stop 01/06/17 at 14:14; Status DC Insulin Aspart (NovoLOG) 0-9 UNITS TIDWMEALS SQ Last administered on 01/07/17 08:43; Start 01/05/17 at 17:00 Dextrose (Dextrose 50%-Water Syringe) 12.5 gm PRN Q15MIN PRN IV SEE COMMENTS; Start 01/05/17 at 15:00; Stop 01/05/17 at 19:05; Status DC Acetaminophen (Tylenol) 650 mg PRN Q6HRS PRN PO FEVER; Start 01/05/17 at 15:00 Ondansetron HCl (Zofran) 4 mg PRN Q6HRS PRN IV NAUSEA/VOMITING; Start 01/05/17 at 15:00 Oxycodone/ Acetaminophen (Percocet 5/325) 1 tab PRN Q4HRS PRN PO PAIN; Start at 15:00 Bupivacaine HCl/ Epinephrine Bitart (Marcaine-Epi 0.25%-[id number]) 50 ml STK-MED ONCE .ROUTE Last administered on 01/05/17t 17:17; Start 01/05/17 at 15:58; Stop 01/05/17 at 15:59; Status DC Fentanyl Citrate (Fentanyl 5ml Vial) 250 mcg STK-MED ONCE .ROUTE ; Start at 16:23; Stop 01/05/17 at 16:24; Status DC Sevoflurane (Ultane) 60 ml STK-MED ONCE IH ; Start 01/05/17 at 16:24; Stop 01/05 at 16:25; Status DC Lidocaine HCl (Lidocaine Pf 2% Vial) 5 ml STK-MED ONCE .ROUTE ; Start 01/05/17 at 16:24; Stop 01/05/17 at 16:25; Status DC Dexamethasone Sodium Phosphate (Decadron) 20 mg STK-MED ONCE .ROUTE ; Start at 16:24; Stop 01/05/17 at 16:25; Status DC Propofol 20 ml @ As Directed STK-MED ONCE IV ; Start 01/05/17 at 16:24; Stop at 16:25; Status DC Ondansetron HCl (Zofran) 4 mg STK-MED ONCE .ROUTE ; Start 01/05/17 at 16:24; Stop 01/05/17 at 16:25; Status DC Cefazolin Sodium 50 ml @ As Directed STK-MED ONCE IV ; Start 01/05/17 at 16:59; Stop 01/05/17 at 17:00; Status DC Cefazolin Sodium 50 ml @ As Directed STK-MED ONCE IV ; Start 01/05/17 at 17:11; Stop 01/05/17 at 17:12; Status DC Oxycodone HCl (Roxicodone) 5 mg PRN Q3HRS PRN PO PAIN; Start 01/05/17 at 19:00 Morphine Sulfate 2 mg PRN Q1HR PRN IV PAIN; Start 01/05/17 at 19:00 Fentanyl Citrate (Fentanyl 2ml Vial) 25 mcg PRN Q1HR PRN IV PAIN; Start at 19:00 Senna/Docusate Sodium (Senna Plus) 1 tab DAILY PO Last administered on 08:37; Start 01/06/17 at 09:00 Polyethylene Glycol (miraLAX PACKET) 17 gm PRN DAILY PRN PO CONSTIPATION; Start 01/05/17 at 19:00 Vitamin D (Vitamin D3) 1,000 unit DAILY PO Last administered on 01/07/17 08:37 ; Start 01/06/17 at 09:00 Ondansetron HCl (Zofran) 4 mg PRN Q4HRS PRN IV NAUSEA/VOMITING; Start 01/05/17 at 19:00 Aspirin (Josette Aspirin) 325 mg DAILYWBKFT PO Last administered on 01/07/17 08: 37; Start 01/06/17 at 08:00 Magnesium Hydroxide (Milk Of Magnesia) 2,400 mg 1X PRN PRN PO CONSTIPATION; Start 01/06/17 at 06:00; Stop 01/07/17 at 05:59; Status DC Bisacodyl (Dulcolax Supp) 10 mg 1X PRN PRN NC CONSTIPATION; Start 01/06/17 at 16:00; Stop 01/07/17 at 15:59 Acetaminophen/ Hydrocodone Bitart (Lortab 7.5/325) 1 tab PRN Q4HRS PRN PO PAIN ; Start 01/05/17 at 19:00 Morphine Sulfate 4 mg PRN Q2HR PRN IV PAIN Last administered on 01/06/17 23:04 ; Start 01/05/17 at 19:00 Acetaminophen/ Hydrocodone Bitart (Lortab 7.5/325) 2 tab PRN Q4HRS PRN PO PAIN Last administered on 01/07/17 09:06; Start 01/05/17 at 19:00 Dextrose (Dextrose 50%-Water Syringe) 12.5 gm PRN Q15MIN PRN IV SEE COMMENTS; Start 01/05/17 at 19:00 Cefazolin Sodium/ Dextrose 50 ml @ 100 mls/hr Q6H IV Last administered on 01/07 04:53; Start 01/05/17 at 23:00; Stop 01/07/17 at 05:29; Status DC Calcium Carbonate/ Glycine (Oscal) 500 mg TIDAFTMEAL PO Last administered on 08:37; Start 01/06/17 at 09:00 Iohexol (Omnipaque 300 Mg/ml) 75 ml 1X ONCE IV Last administered on 01/06/17t 09:14; Start 01/06/17 at 07:00; Stop 01/06/17 at 07:01; Status DC Info (Do NOT chart on this entry -- for MONITORING) 1 each PRN DAILY PRN MC SEE COMMENTS; Start 01/06/17 at 07:00; Stop 01/08/17 at 06:59 Vitals/I & O Vital Sign - Last 24 Hours 01/06/17 01/06/17 01/06/17 01/06/17 11:00 15:00 16:45 19:00 Temp 98.1 98.8 99.0 98.1 98.8 99.0 Pulse 97 82 86 Resp 20 20 18 20 B/P (MAP) 125/66 (85) 114/59 (77) 102/52 (69) Pulse Ox 99 95 96 O2 Delivery Room Air Room Air Room Air 01/06/17 01/06/17 01/06/17 01/06/17 19:15 20:31 23:00 23:04 Temp 97.4 97.4 Pulse 87 Resp 18 B/P (MAP) 134/83 (100) Pulse Ox 96 95 96 O2 Delivery Room Air Room Air Room Air Room Air 01/06/17 01/07/17 01/07/17 01/07/17 23:40 01:04 03:00 04:54 Temp 98.4 98.4 Pulse 84 Resp 18 B/P (MAP) 114/73 (87) Pulse Ox 96 96 96 96 O2 Delivery Room Air Room Air Room Air Room Air 01/07/17 01/07/17 01/07/17 01/07/17 06:00 07:00 09:06 10:22 Temp 98.3 98.3 Pulse 77 Resp 18 B/P (MAP) 120/69 (86) Pulse Ox 96 95 O2 Delivery Room Air Room Air Room Air Intake and Output 01/06/17 01/06/17 01/07/17 15:00 23:00 07:00 Intake Total 300 ml Output Total 500 ml Balance -200 ml CIRILO STEWART MD January 07, 2017 10:45
[2017-01-07 11:00] VITALS: BP 121/72
[2017-01-07 15:00] VITALS: BP 130/72
--- NOTE | 2017-01-07 16:37 | RAD ---
Left lower extremity venous ultrasound, 01/07/2017 : History: Left lower extremity swelling and pain Duplex evaluation including grayscale, color flow and spectral Doppler analysis was performed. The femoral and popliteal veins show no filling defects to suggest DVT. The visualized deep veins in the left calf are unremarkable. A mildly prominent lymph node is noted at the left groin measuring 9 x 27 mm. It demonstrates a normal echogenic hilum. IMPRESSION: There is no sonographic evidence of deep vein thrombosis in the left lower extremity
--- NOTE | 2017-01-07 18:16 | PDOC ---
PROGRESS NOTES Subjective Subjective More pain today than yesterday. Objective Vital Signs Vital Signs Date Time Temp Pulse Resp B/P (MAP) Pulse Ox O2 Delivery O2 Flow Rate FiO2 01/07/17 18:01 Room Air 01/07/17 15:00 97.9 84 18 130/72 (91) 94 97.9 01/05/17 19:02 10 Physical Exam Lying in bed with LLE elevated. Dressing removed. Incision is intact with small amount of bloody drainage. Wound was cleansed with saline wound wash and sterile 4x4's. The tissue in the middle of the incision is purple-carlos alberto, but still seems viable. Calf soft and nontender. +df/pf. Peripheral pulses and light touch sensation intact. Labs Laboratory Tests Test 01/05/17 18:53 01/05/17 20:45 01/06/17 05:29 01/06/17 07:25 Glucose (Fingerstick) 164 mg/dL (70-99) 226 mg/dL (70-99) 150 mg/dL (70-99) White Blood Count 11.3 x10^3/uL (4.0-11.0) Red Blood Count 4.39 x10^6/uL (4.30-5.70) Hemoglobin 13.0 g/dL (13.0-17.5) Hematocrit 38.6 % (39.0-53.0) Mean Corpuscular Volume 88 fL (79-100) Mean Corpuscular Hemoglobin 30 pg (25-35) Mean Corpuscular Hemoglobin Concent 34 g/dL (31-37) Red Cell Distribution Width 13.4 % (11.5-14.5) Platelet Count 189 x10^3/uL (140-400) Neutrophils (%) (Auto) 85 % (31-73) Lymphocytes (%) (Auto) 9 % (24-48) Monocytes (%) (Auto) 6 % (0-9) Eosinophils (%) (Auto) 0 % (0-3) Basophils (%) (Auto) 0 % (0-3) Neutrophils # (Auto) 9.6 x10^3uL (1.8-7.7) Lymphocytes # (Auto) 1.0 x10^3/uL (1.0-4.8) Monocytes # (Auto) 0.7 x10^3/uL (0.0-1.1) Eosinophils # (Auto) 0.0 x10^3/uL (0.0-0.7) Basophils # (Auto) 0.0 x10^3/uL (0.0-0.2) Sodium Level 141 mmol/L (136-145) Potassium Level 3.8 mmol/L (3.5-5.1) Chloride Level 106 mmol/L (98-107) Carbon Dioxide Level 26 mmol/L (21-32) Anion Gap 9 (6-14) Blood Urea Nitrogen 13 mg/dL (8-26) Creatinine 1.1 mg/dL (0.7-1.3) Estimated GFR (Cockcroft-Gault) 69.2 Glucose Level 190 mg/dL (70-99) Calcium Level 8.4 mg/dL (8.5-10.1) 25-Hydroxy Vitamin D Total 33.9 ng/mL (30.0-100.0) Test 01/06/17 11:31 01/06/17 16:03 01/06/17 18:35 01/06/17 20:21 Glucose (Fingerstick) 234 mg/dL (70-99) 253 mg/dL (70-99) 177 mg/dL (70-99) Hemoglobin 12.3 g/dL (13.0-17.5) Hematocrit 36.1 % (39.0-53.0) Mean Corpuscular Hemoglobin Concent 34 g/dL (31-37) Test 01/07/17 07:45 01/07/17 07:49 01/07/17 11:46 01/07/17 16:31 White Blood Count 8.5 x10^3/uL (4.0-11.0) Red Blood Count 4.23 x10^6/uL (4.30-5.70) Hemoglobin 12.6 g/dL (13.0-17.5) Hematocrit 37.2 % (39.0-53.0) Mean Corpuscular Volume 88 fL (79-100) Mean Corpuscular Hemoglobin 30 pg (25-35) Mean Corpuscular Hemoglobin Concent 34 g/dL (31-37) Red Cell Distribution Width 13.1 % (11.5-14.5) Platelet Count 164 x10^3/uL (140-400) Neutrophils (%) (Auto) 75 % (31-73) Lymphocytes (%) (Auto) 14 % (24-48) Monocytes (%) (Auto) 9 % (0-9) Eosinophils (%) (Auto) 1 % (0-3) Basophils (%) (Auto) 0 % (0-3) Neutrophils # (Auto) 6.4 x10^3uL (1.8-7.7) Lymphocytes # (Auto) 1.2 x10^3/uL (1.0-4.8) Monocytes # (Auto) 0.8 x10^3/uL (0.0-1.1) Eosinophils # (Auto) 0.1 x10^3/uL (0.0-0.7) Basophils # (Auto) 0.0 x10^3/uL (0.0-0.2) Sodium Level 142 mmol/L (136-145) Potassium Level 3.8 mmol/L (3.5-5.1) Chloride Level 107 mmol/L (98-107) Carbon Dioxide Level 27 mmol/L (21-32) Anion Gap 8 (6-14) Blood Urea Nitrogen 12 mg/dL (8-26) Creatinine 1.2 mg/dL (0.7-1.3) Estimated GFR (Cockcroft-Gault) 62.6 Glucose Level 184 mg/dL (70-99) Calcium Level 8.4 mg/dL (8.5-10.1) Glucose (Fingerstick) 183 mg/dL (70-99) 139 mg/dL (70-99) 196 mg/dL (70-99) Laboratory Tests Test 01/06/17 18:35 01/06/17 20:21 01/07/17 07:45 01/07/17 07:49 Hemoglobin 12.3 g/dL (13.0-17.5) 12.6 g/dL (13.0-17.5) Hematocrit 36.1 % (39.0-53.0) 37.2 % (39.0-53.0) Mean Corpuscular Hemoglobin Concent 34 g/dL (31-37) 34 g/dL (31-37) Glucose (Fingerstick) 177 mg/dL (70-99) 183 mg/dL (70-99) White Blood Count 8.5 x10^3/uL (4.0-11.0) Red Blood Count 4.23 x10^6/uL (4.30-5.70) Mean Corpuscular Volume 88 fL (79-100) Mean Corpuscular Hemoglobin 30 pg (25-35) Red Cell Distribution Width 13.1 % (11.5-14.5) Platelet Count 164 x10^3/uL (140-400) Neutrophils (%) (Auto) 75 % (31-73) Lymphocytes (%) (Auto) 14 % (24-48) Monocytes (%) (Auto) 9 % (0-9) Eosinophils (%) (Auto) 1 % (0-3) Basophils (%) (Auto) 0 % (0-3) Neutrophils # (Auto) 6.4 x10^3uL (1.8-7.7) Lymphocytes # (Auto) 1.2 x10^3/uL (1.0-4.8) Monocytes # (Auto) 0.8 x10^3/uL (0.0-1.1) Eosinophils # (Auto) 0.1 x10^3/uL (0.0-0.7) Basophils # (Auto) 0.0 x10^3/uL (0.0-0.2) Sodium Level 142 mmol/L (136-145) Potassium Level 3.8 mmol/L (3.5-5.1) Chloride Level 107 mmol/L (98-107) Carbon Dioxide Level 27 mmol/L (21-32) Anion Gap 8 (6-14) Blood Urea Nitrogen 12 mg/dL (8-26) Creatinine 1.2 mg/dL (0.7-1.3) Estimated GFR (Cockcroft-Gault) 62.6 Glucose Level 184 mg/dL (70-99) Calcium Level 8.4 mg/dL (8.5-10.1) Test 01/07/17 11:46 01/07/17 16:31 Glucose (Fingerstick) 139 mg/dL (70-99) 196 mg/dL (70-99) Assessment Assessment POD #2 left distal tibia ORIF Problems: Plan Plan of Care Continue DVT ppx and therapy. Toe-touch weightbearing on LLE with crutches. From ortho standpoint, may be discharged to home tomorrow. Discussed taking Citracal two caps, twice daily. Percocet written for pain in chart. Followup with [facility] in 10-14 days. VITOR MATHEWS January 07, 2017 18:16
[2017-01-07 19:00] VITALS: BP 127/85
[2017-01-07 23:00] VITALS: BP 126/72
[2017-01-07] MEDS ORDERED: ENOXAPARIN 40 MG/0.4 ML SYRINGE. SQ SCH (23:45)
[2017-01-08] MEDS: HYDROcodone/APAP 7.5/325MG 1 TAB TABLET PO PRN ×3 (02:06→11:05)
[2017-01-08 03:00] VITALS: BP 135/54
[2017-01-08 04:20] LABS: BASO % 0 % (0-3); EOS % 2 % (0-3); HEMATOCRIT 36.9 % (39.0-53.0); HEMOGLOBIN 12.4 g/dL (13.0-17.5); LYMPH # 1.3 x10^3/uL (1.0-4.8); LYMPH % 16 % (24-48); MEAN CORPUSCULAR HEMOGLOBIN 30 pg (25-35); MEAN CORPUSCULAR HGB CONC 34 g/dL (31-37); MEAN CORPUSCULAR VOLUME 89 fL (79-100); MONO % 9 % (0-9); NEUT % 72 % (31-73); PLATELET COUNT 170 x10^3/uL (140-400); RED BLOOD COUNT 4.15 x10^6/uL (4.30-5.70); RED CELL DISTRIBUTION WIDTH 13.2 % (11.5-14.5); WHITE BLOOD COUNT 8.6 x10^3/uL (4.0-11.0)
[2017-01-08 04:34] LABS: CALCIUM 8.7 mg/dL (8.5-10.1); CREATININE 1.1 mg/dL (0.7-1.3); GFR 69.2; POTASSIUM 3.6 mmol/L (3.5-5.1)
[2017-01-08 07:00] VITALS: BP 139/78
[2017-01-08] MEDS: ASPIRIN 325 MG TABLET PO SCH (08:56)
[2017-01-08] MEDS: CHOLECALCIFEROL (VITAMIN D3) 1,000 UNIT TABLET PO SCH (08:56)
[2017-01-08] MEDS: CALCIUM CARBONATE 500 MG TABLET PO SCH (08:57)
[2017-01-08] MEDS: SENNOSIDES/DOCUSATE 8.6/50MG TABLET. PO SCH (08:57)
[2017-01-08] MEDS: INSULIN ASPART 300 UNITS/3 ML INSULN.PEN SQ SCH (09:13)
--- NOTE | 2017-01-09 00:01 | DS ---
DATE OF DISCHARGE: 01/08/2017 ADMISSION DIAGNOSIS: Tibial fracture. DISCHARGE DIAGNOSIS: Postop ORIF of tibial fracture. HOSPITAL COURSE: The patient is a pleasant 56-year-old male who was using a salvage grinder. The salvage grinder exploded and hit his ankle and broke his ankle at the distal tibia. Basically, he was admitted. We consulted orthopedics and he was taken for ORIF. Post procedure, he has done well. We plan to discharge. DISPOSITION: Home. ACTIVITY: As tolerated. DIET: Low sodium. MEDICATIONS: Please see the MRAD. TOTAL TIME ON DISCHARGE: 38 minutes. NIAL Patricio BOLIVAR DO DR: IMANI/nikolai JOB#: [id number] / [id number]
== END 2017-01-08 11:10 | disposition home or self-care (01) | DRG 464 ==
LOC: ER 11:51 → 4 NORTH 12:55
PROVIDERS: ADMIT Internal Medicine; ATTEND Internal Medicine
PROC: 0QCG0ZZ Extirpation of Matter from Right Tibia, Open Approach (ICD-10-PCS; 2017-01-05)
PROC: 0QSH04Z Reposition Left Tibia with Internal Fixation Device, Open Approach (ICD-10-PCS; principal; 2017-01-05 17:15)
PROC: 0JBP0ZZ Excision of Left Lower Leg Subcutaneous Tissue and Fascia, Open Approach (ICD-10-PCS; 2017-01-05 17:15)
DX: S82.252B Displaced comminuted fracture of shaft of left tibia, initial encounter for open fracture type I or II (principal); J98.11 Atelectasis; D72.829 Elevated white blood cell count, unspecified; E11.9 Type 2 diabetes mellitus without complications; E66.9 Obesity, unspecified; I10 Essential (primary) hypertension; S31.119A Laceration without foreign body of abdominal wall, unspecified quadrant without penetration into peritoneal cavity, initial encounter; Z68.30 Body mass index [BMI] 30.0-30.9, adult; Z82.49 Family history of ischemic heart disease and other diseases of the circulatory system; W31.1XXA Contact with metalworking machines, initial encounter; Y93.89 Activity, other specified; Y92.89 Other specified places as the place of occurrence of the external cause; Y99.8 Other external cause status; Z79.899 Other long term (current) drug therapy; Z79.1 Long term (current) use of non-steroidal anti-inflammatories (NSAID); Z79.2 Long term (current) use of antibiotics; Z79.4 Long term (current) use of insulin
CPT/HCPCS: 29515; 36415; 71010; 73590; 74177; 76000; 80048; 82306; 82962; 85014; 85018; 85027; 93005; 93971; 96365; 96375; 96376; A4215; C1713; J0690; J1100; J1650; J1815; J2270; J2405; J2704; J3010; J7120; Q9967; 97116; 97535; 99285-25

== ENCOUNTER → 2017-05-03 | Outpatient (CLI) | payer BC | END | disposition home or self-care (01) | LOC: LAB 12:15 | PROVIDERS: ATTEND Orthopaedic Surgery | DX: M86.462 Chronic osteomyelitis with draining sinus, left tibia and fibula (principal) | CPT/HCPCS: 87205 ==

== ENCOUNTER → 2017-09-21 | Outpatient (CLI) | payer BC | END | disposition home or self-care (01) | LOC: KCIC MRI 09:02 | DX: S46.011A Strain of muscle(s) and tendon(s) of the rotator cuff of right shoulder, initial encounter (principal); X58.XXXA Exposure to other specified factors, initial encounter; Y93.89 Activity, other specified; Y92.89 Other specified places as the place of occurrence of the external cause; Y99.8 Other external cause status | CPT/HCPCS: 73221 ==

== ENCOUNTER 2018-01-21 11:38 | Emergency (ER) | payer BC ==
[2018-01-21] MEDS: MORPHINE SULFATE 4 MG/ML DISP.SYRIN. IV (12:17)
[2018-01-21] MEDS: ETOMIDATE 20 MG/10 ML VIAL. IV (12:58)
[2018-01-21] MEDS: fentaNYL PF VIAL 100 MCG/2 ML VIAL IV (13:15)
== END 2018-01-21 15:23 | disposition home or self-care (01) ==
LOC: ER 11:38
DX: S43.004A Unspecified dislocation of right shoulder joint, initial encounter (principal); E11.9 Type 2 diabetes mellitus without complications; I10 Essential (primary) hypertension; X58.XXXA Exposure to other specified factors, initial encounter; Y93.89 Activity, other specified; Y92.89 Other specified places as the place of occurrence of the external cause; Y99.8 Other external cause status
CPT/HCPCS: 23650; 73030; 96374; 99285; J2270

== ENCOUNTER 2018-01-22 21:48 | Emergency (ER) | payer BC ==
[2018-01-22] MEDS: fentaNYL PF VIAL 100 MCG/2 ML VIAL IV (22:45)
[2018-01-22] MEDS: ETOMIDATE 20 MG/10 ML VIAL. IV (23:10)
== END 2018-01-23 00:05 | disposition home or self-care (01) ==
LOC: ER 01-23 00:05
DX: S43.004A Unspecified dislocation of right shoulder joint, initial encounter (principal); E11.9 Type 2 diabetes mellitus without complications; I10 Essential (primary) hypertension; X50.9XXA Other and unspecified overexertion or strenuous movements or postures, initial encounter; Y93.89 Activity, other specified; Y92.89 Other specified places as the place of occurrence of the external cause; Y99.8 Other external cause status
CPT/HCPCS: 23650; 73020; 73030; 99285-25; J3010

== ENCOUNTER → 2018-02-09 | Outpatient (CLI) | payer BC ==
[~2018-02-09] MED LIST: CONTRAST GIVEN. MC
[2018-02-09] MEDS: LIDOCAINE 1% Multi-Dose 20 ML VIAL. ID (11:05)
[2018-02-09] MEDS: IOHEXOL 300 MG/ML 50 ML VIAL. INT ART (11:05)
[2018-02-09] MEDS: GADOBUTROL 7.5 MMOL/7.5 ML VIAL INT ART (11:05)
== END | disposition home or self-care (01) ==
LOC: KCIC 09:59
DX: Z01.818 Encounter for other preprocedural examination (principal); M75.121 Complete rotator cuff tear or rupture of right shoulder, not specified as traumatic
CPT/HCPCS: 73040; 73200; 73222; A9585; Q9967

== ENCOUNTER 2018-04-10 00:46 | Emergency (ER) | payer BC ==
[~2018-04-10] VITALS: Ht 177.8 cm; Wt 98.4 kg
[~2018-04-10 00:46] MED LIST changes: -CONTRAST GIVEN. MC; +MELO15TA6 PO
[2018-04-10] MEDS ORDERED: ONDANSETRON PF 4 MG/2 ML VIAL. IV ONE (01:30)
[2018-04-10] MEDS ORDERED: fentaNYL PF VIAL 100 MCG/2 ML VIAL IV ONE (01:30)
--- NOTE | 2018-04-10 02:17 | RAD ---
SHOULDER 2+V RIGHT Clinical Indication: shoulder dislocation; arm stuck above head Comparison: Right shoulder, 2 views January 22, 2018. Findings: Arm is positioned over head. There is anterior dislocation on the axillary view. No acute fracture. Acromioclavicular articulation is intact. Os acromiale is noted. The right upper lung is clear. IMPRESSION: Anterior dislocation of the humeral head. Electronically signed by: Jose Carlos Domínguez MD (04/10/2018 2:14 AM) [id number]
[2018-04-10] MEDS ORDERED: PROPOFOL 20 ML IV ONE (03:00)
--- NOTE | 2018-04-10 03:05 | PHYS DOC ---
Past Medical History Past Medical History: Diabetes-Type II, Hypertension Past Surgical History: Other Additional Past Surgical Histo: EYE SURGERY Alcohol Use: Occasionally Drug Use: None Adult General Chief Complaint Chief Complaint: SHOUDLER HPI HPI Patient is a 57-year-old male who presents with complaint of right shoulder pain , indicating that he believes the shoulder is dislocated. Patient has had a total of 5 dislocations of that right shoulder in the past. He states that while he was asleep he rates his arm above his head and felt his arm pop out. He states he has not been able to move the shoulder since. He rates his pain to be a 10 out of 10. Denies any other injuries. Review of Systems Review of Systems Constitutional: Denies fever or chills [] Respiratory: Denies cough or shortness of breath [] Cardiovascular: Denies chest pain[] GI: Denies abdominal pain, nausea, vomiting [] Musculoskeletal: Complains of right shoulder pain[] All other systems were reviewed and found to be within normal limits, except as documented in this note. Current Medications Current Medications Current Medications Medications (Trade) Dose Ordered Sig/Dario Start Time Stop Time Status Last Admin Dose Admin Fentanyl Citrate (Fentanyl 2ml Vial) 50 mcg 1X ONCE 04/10/18 01:30 04/10/18 02:01 DC 04/10/18 01:48 50 MCG Ondansetron HCl (Zofran) 4 mg 1X ONCE 04/10/18 01:30 04/10/18 02:01 DC 04/10/18 01:47 4 MG Propofol 20 ml @ 0 mls/hr 1X ONCE 04/10/18 03:00 04/10/18 03:01 DC 04/10/18 02:53 270 MLS/HR Allergies Allergies Allergies Coded Allergies Type Severity Reaction Last Updated Verified No Known Drug Allergies 10/24/15 No Physical Exam Physical Exam Constitutional: Well developed, well nourished, in mild distress due to pain. [] HENT: Normocephalic, atraumatic, bilateral external ears normal, oropharynx moist, no oral exudates, nose normal. [] Eyes: PERRLA, EOMI, conjunctiva normal, no discharge. [] Neck: Normal range of motion, no tenderness, supple, no stridor. [] Cardiovascular:Heart rate regular rhythm [] Lungs & Thorax: Bilateral breath sounds clear to auscultation [] Abdomen: Bowel sounds normal, soft, no tenderness. [] Skin: Warm, dry, no erythema, no rash. [] Extremities: No tenderness, no cyanosis, no clubbing, ROM intact, no edema. [] Neurologic: Alert and oriented X 3, normal motor function. [] Current Patient Data Vital Signs Vital Signs Date Time Temp Pulse Resp B/P (MAP) Pulse Ox O2 Delivery O2 Flow Rate FiO2 04/10/18 03:10 70 18 128/75 (92) 96 Room Air 04/10/18 02:53 98.6 2.0 98.5 2.0 EKG EKG [] Radiology/Procedures Radiology/Procedures Procedural Sedation: Pre-assessment performed. See preceding complete history and physical for details. Time out performed. See sedation documentation for details. Medication(s): Propofol Complications: No hypoxic or apneic events Recovered without incident. Greater than 15 minutes of face to face time included in sedation and recovery. Shoulder Reduction by me: Anesthesia: Propofol Location: Right anterior dislocation Technique: Traction-countertraction Results: Anabaptist of normal anatomic positioning Compl: Neurovascularly intact post procedure. Shoulder immobilizer Assessment: Neurovascularly intact post sling placement with good fit. Post-reduction X-ray Shoulder 3V Interpreted by me: Bones: Right shoulder Joints: Relocation of previously noted dislocation Foreign body: None Impressions: X-ray of the right shoulder demonstrates anterior dislocation of the humeral head Course & Med Decision Making Course & Med Decision Making Pertinent Labs and Imaging studies reviewed. (See chart for details) [] Dragon Disclaimer Dragon Disclaimer This electronic medical record was generated, in whole or in part, using a voice recognition dictation system. Departure Departure Impression: Primary Impression: Shoulder dislocation Disposition: 01 HOME, SELF-CARE Condition: STABLE Referrals: [facility] [facility] (PCP) Patient Instructions: Shoulder Dislocation Additional Instructions: Follow-up with orthopedist in the next few days. Problem Qualifiers Primary Impression: Shoulder dislocation Encounter type: initial encounter Laterality: right Qualified Codes: S43.004A - Unspecified dislocation of right shoulder joint, initial encounter PHU GARCIA Jr., DO Apr 10, 2018 03:05
[2018-04-10 03:30] VITALS: BP 126/88
--- NOTE | 2018-04-10 03:47 | RAD ---
SHOULDER 2+V RIGHT Clinical Indication: POST REDUCTION Comparison: Right shoulder, 2 views, earlier same day. Findings: Anterior dislocation of the shoulder has been reduced. No acute fracture is seen. There is os acromiale. No soft tissue swelling. Visualized lungs are clear. IMPRESSION: Reduction of anterior shoulder dislocation. Electronically signed by: Jose Carlos Domínguez MD (04/10/2018 3:44 AM) [id number]
== END 2018-04-10 03:46 | disposition home or self-care (01) ==
LOC: ER 00:46
DX: S43.004A Unspecified dislocation of right shoulder joint, initial encounter (principal); E11.9 Type 2 diabetes mellitus without complications; I10 Essential (primary) hypertension; X58.XXXA Exposure to other specified factors, initial encounter; Y93.89 Activity, other specified; Y92.89 Other specified places as the place of occurrence of the external cause; Y99.8 Other external cause status
CPT/HCPCS: 23650; 73030; 96374; 96375; 99284; J2405; J2704; J3010; 99152

== ENCOUNTER → 2020-07-18 | Outpatient (CLI) | payer MEDICARE, BC ==
--- NOTE | 2020-07-18 15:29 | KCIC ---
EXAM: MRI LEFT SHOULDER WITHOUT CONTRAST INDICATION: Left shoulder pain COMPARISON: Left shoulder radiograph 07/15/2020 TECHNIQUE: Multiplanar, multisequence imaging of the left shoulder without contrast. FINDINGS: ROTATOR CUFF: There is a small deep partial-thickness bursal sided tear of the anterior supraspinatus tendon distally at the footprint measuring approximately 6 x 6 mm. This is superimposed on supraspinatus and infraspinatus tendinopathy. The subscapularis and teres minor tendons are intact. No rotator cuff muscle atrophy or edema.. LABRUM: There is superior and posterior superior labral degeneration. BICEPS TENDON: Biceps tendon is not visualized, suspicious for chronic complete tear. ACROMIOCLAVICULAR JOINT: Mild acromioclavicular degenerative joint disease. There is an os acromiale with mild cystic changes around the synchondrosis. GLENOHUMERAL JOINT: No high-grade cartilage loss. Alignment is normal. There is a tiny humeral head osteophyte. No acute fracture or marrow edema. OTHER: No joint effusion. Mild subacromial-subdeltoid bursitis. IMPRESSION: 1. Small deep partial-thickness bursal sided tear of the anterior supraspinatus tendon at the footprint. Supraspinatus and infraspinatus tendinopathy. 2. Biceps tendon is not visualized, suspicious for chronic complete tear. 3. Superior and posterior superior labral degeneration. 4. Subacromial-subdeltoid bursitis. 5. Mild acromioclavicular degenerative joint disease. Os acromiale with small cysts along the synchondrosis. Electronically signed by: Valery Choi MD (07/18/2020 3:25 PM) [id number]
== END ==
LOC: KCIC MRI 12:29
PROVIDERS: ATTEND Orthopaedic Surgery
DX: M19.012 Primary osteoarthritis, left shoulder (principal); M75.102 Unspecified rotator cuff tear or rupture of left shoulder, not specified as traumatic
CPT/HCPCS: 73221

== ENCOUNTER → 2020-10-17 | Outpatient (CLI) | payer MEDICARE, BC ==
--- NOTE | 2020-10-17 11:23 | KCIC ---
EXAMINATION: MRI LEFT SHOULDER WITHOUT IV CONTRAST CLINICAL HISTORY: Worsening left shoulder pain and limited range of motion following recent fall TECHNIQUE: Multiplanar multisequential images obtained through the shoulder without intravenous contr ast. COMPARISON: 07/18/2020 FINDINGS: Limited evaluation with only sagittal and axial images obtained and prominent motion artifact on T2 f at-sat sagittal images. Patient had difficulty lying still and was ultimately unable to complete the exam due to degree of severe pain. TENDONS: - Supraspinatus: Interval full-thickness tear involving the anterior half the tendon strongly suspect ed. - Infraspinatus: Moderate to marked tendinosis without definite full-thickness tear, similar to prior study. - Subscapularis: Interval moderate sized full-thickness tear involving the mid to superior portion of the tendon - Teres Minor: Within normal limits. - Biceps Tendon: Not definitively visualized and likely chronically torn and retracted. MUSCLES: Muscle bulk and signal intensity are within normal limits. LABRUM: Labral degeneration without discrete tear. Nondiagnostic evaluation of the superior and infer ior labrum. GLENOHUMERAL JOINT: - Joint Fluid: Moderate to large joint effusion with synovitis extending into the subscapularis reces s. - Cartilage: No full-thickness chondral defect visualized. ACROMIOCLAVICULAR JOINT: Interval development of small joint effusion. Redemonstration of os acromial e with degenerative changes at the synchondrosis. BONES/MARROW: No evidence of acute fracture or suspicious marrow replacing process on limited evaluat ion. OTHER: No other significant abnormality identified. IMPRESSION: Significantly limited evaluation as described. Interval full-thickness subscapularis tendon tear and strongly suspected supraspinatus tendon tear as described. Interval development of moderate to large glenohumeral joint effusion with synovitis and small acromi oclavicular joint effusion. Electronically signed by: Gino Mera DO (10/17/2020 11:21 AM) [id number]
== END ==
LOC: KCIC MRI 07:50
PROVIDERS: ATTEND Orthopaedic Surgery
DX: M19.012 Primary osteoarthritis, left shoulder (principal); M25.412 Effusion, left shoulder
CPT/HCPCS: 73221